=== PATIENT | female | born 1970 | race Caucasian/White ===

== ENCOUNTER → 2016-05-19 | Outpatient (CLI) | payer OTHER ==
[2016-01-14 17:55] VITALS: BP 110/54
[~2016-05-19] MED LIST: HYDR-2666 PO; INSU100I17 SQ; INSU300I SQ; LISI-338 PO; ONDA4TAB10 SL; POLY17PO5 PO; QUET25TA5 PO; SENN8.6T99 PO; TRAM50TA PO; novalog
--- NOTE | 2016-05-19 14:45 | RAD ---
DATE: 05/19/2016 EXAM: Bilateral diagnostic mammogram to include bilateral breast ultrasound 05/19/2017 HISTORY: History of bilateral breast nodules. History of calcifications seen within both breasts seen on previous screening mammogram. 6 month follow-up was recommended. COMPARISON: 10/15/2015 This study was interpreted with the benefit of Computerized Aided Detection (CAD). FINDINGS: Digital MLO and CC mammograms of both breasts were obtained. Comparison study is dated 10/15/2015. The breast parenchyma is heterogeneously dense which can obscure a lesion on mammography (breast density code C). Benign-appearing calcifications are seen scattered throughout both breasts. They are unchanged. No malignant appearing calcification or area of architectural distortion is noted. Since the previous examination there has been no significant interval change. The patient has palpable nodules within both breasts. Ultrasound of the upper outer quadrants of both breasts was performed. Multiple images were obtained. Within the upper outer quadrant of the right breast at the 10:00 position 3 oval-shaped anechoic structures are seen consistent with simple cysts these measure 4 mm 1 cm in size no solid mass is seen. These cysts correspond to the patient's palpable abnormality. Normal appearing dense glandular breast tissue is seen within the upper outer quadrant left breast. No solid or cystic mass is seen. IMPRESSION: BI-RADS Category 2 benign findings. There is no mammographic evidence of malignancy. Routine yearly screening mammography is recommended for follow-up. BI-RADS CATEGORY: 2 BENIGN FINDING(S) RECOMMENDED FOLLOW-UP: 12M 12 MONTH FOLLOW-UP PQRS compliance statement: Patient information was entered into a reminder system with a target due date 10/14/2016 for the next mammogram. Mammography is a sensitive method for finding small breast cancers, but it does not detect them all and is not a substitute for careful clinical examination. A negative mammogram does not negate a clinically suspicious finding and should not result in delay in biopsying a clinically suspicious abnormality. "Our facility is accredited by the [employer] Mammography Program."
== END | disposition home or self-care (01) ==
LOC: MAMMO 12:06
PROVIDERS: ATTEND Family Medicine
DX: R92.8 Other abnormal and inconclusive findings on diagnostic imaging of breast (principal); N63 Unspecified lump in breast
CPT/HCPCS: 76641; G0204; 77066

== ENCOUNTER 2016-07-25 11:38 | Emergency (ER) | payer SELFPAY ==
[~2016-07-25] VITALS: Ht 152.4 cm; Wt 59.4 kg
[~2016-07-25 11:38] MED LIST changes: +POLY17PO29 PO; -POLY17PO5 PO
[2016-07-25 12:14] LABS: BASO % 0 % (0-3); EOS % 2 % (0-3); HEMATOCRIT 41.7 % (36.0-47.0); HEMOGLOBIN 14.7 g/dL (12.0-15.5); LYMPH # 4.1 x10^3/uL (1.0-4.8); LYMPH % 39 % (24-48); MEAN CORPUSCULAR HEMOGLOBIN 32 pg (25-35); MEAN CORPUSCULAR HGB CONC 35 g/dL (31-37); MEAN CORPUSCULAR VOLUME 91 fL (79-100); MONO % 5 % (0-9); NEUT % 54 % (31-73); PLATELET COUNT 235 x10^3/uL (140-400); RED BLOOD COUNT 4.61 x10^6/uL (3.50-5.40); RED CELL DISTRIBUTION WIDTH 12.7 % (11.5-14.5); WHITE BLOOD COUNT 10.5 x10^3/uL (4.0-11.0)
[2016-07-25 12:22] LABS: CALCIUM 8.8 mg/dL (8.5-10.1); CREATININE 0.6 mg/dL (0.6-1.0); GFR 107.6; POTASSIUM 3.4 mmol/L (3.5-5.1)
[2016-07-25 12:24] LABS: PROTHROMBIN TIME PATIENT 12.9 SEC (11.7-14.0)
[2016-07-25 12:27] LABS: ALBUMIN 3.9 g/dL (3.4-5.0); ALBUMIN/GLOBULIN RATIO 1.2 (1.0-1.7); TOTAL PROTEIN 7.2 g/dL (6.4-8.2)
[2016-07-25 12:45] LABS: TOTAL BILIRUBIN 0.6 mg/dL (0.2-1.0)
[2016-07-25 13:07] LABS: BILIRUBIN,URINE NEGATIVE (NEG); GLUCOSE,URINE >=1000 mg/dL (NEG); NITRITE,URINE NEGATIVE (NEG); PROTEIN,URINE NEGATIVE (NEG-TRACE); UROBILINOGEN,URINE 0.2 mg/dL (0.2 mg/dL)
[2016-07-25 13:22] LABS: BACTERIA,URINE FEW /HPF (0-FEW); RBC,URINE OCC /HPF (0-2); SQUAMOUS EPITHELIAL CELL,UR FEW /LPF; WBC,URINE RARE /HPF (0-4)
[2016-07-25 14:00] VITALS: BP 123/71
--- NOTE | 2016-07-25 14:11 | PHYS DOC ---
Past Medical History Past Medical History: Bipolar, Diabetes-Type II, Pancreatitis, Other Additional Past Medical Histor: ADHD, GASTROPARESIS Past Surgical History: Cholecystectomy, Hysterectomy, Tonsillectomy, Tubal ligation Alcohol Use: None Drug Use: None Adult General Chief Complaint Chief Complaint: ABDOMINAL PAIN HPI HPI Patient is a 45 year old female who left work today and presented to the ED complaining of abdominal pain. The patient states she had abdominal pain like this once before when she was diagnosed with pancreatitis. She's had some nausea but no vomiting. It started yesterday, bothered her all night long, she went to work for about 3 hours this morning but she ended up leaving to come to the ED to get checked out. Patient states that so far today she has had Pedialyte to drink and she ate a "oatmeal cream high". That stayed down. She has a history of gastroparesis, takes erythromycin every morning for that. She had one episode of pancreatitis in the past. They ended up attributing it to triglycerides. She told me that she does not drink alcohol and has had her gallbladder out. She's not on any medication for triglycerides. Patient states she had several bowel movements yesterday, would not really characterize it as diarrhea, does not believe she had blood in it. She attributes this to the fact that she started a "ten-day cleanse" 2 days ago and drank a fiber drink that day. She was supposed to drink the fiber drink every day but she only drank one time because the next day she did have several bowel movements and thought maybe that was the reason. PCP Dr. Weathers Review of Systems Review of Systems Constitutional: Denies fever or chills [] Respiratory: Denies cough or shortness of breath [] GI: As in history of present illness : Denies dysuria or hematuria [] Allergies Allergies Allergies Coded Allergies Type Severity Reaction Last Updated Verified Penicillins Allergy Intermediate 03/22/15 No amoxicillin Allergy Intermediate 03/22/15 No cephalexin Allergy Intermediate 03/22/15 No diclofenac Allergy Intermediate nausea 01/14/16 Yes morphine Allergy Intermediate 03/22/15 No Physical Exam Physical Exam Constitutional: Well developed, well nourished, no acute distress, non-toxic appearance. Alert, talkative, mentating normally, no acute distress. HENT: Normocephalic, atraumatic, bilateral external ears normal, nose normal. [ ] Eyes: conjunctiva normal, no discharge. [] Neck: Normal range of motion, no stridor. [] Cardiovascular:Heart rate regular rhythm, no murmur [] Lungs & Thorax: Bilateral breath sounds clear to auscultation [] Abdomen: Bowel sounds normal, soft, no masses, no pulsatile masses. Mild tenderness across the upper abdomen to palpation, abdomen overall is very benign , no rebound or guarding Skin: Warm, dry, no erythema, no rash. [] Extremities: No tenderness, no cyanosis, no clubbing, ROM intact, no edema. [] Neurologic: Alert and oriented X 3, normal motor function, normal sensory function, no focal deficits noted. [] Current Patient Data Vital Signs Vital Signs Date Time Temp Pulse Resp B/P (MAP) Pulse Ox O2 Delivery O2 Flow Rate FiO2 07/25/16 14:00 76 14 123/71 (88) 98 07/25/16 11:40 98.3 Room Air 98.3 Lab Values Laboratory Tests Test 07/25/16 11:50 07/25/16 12:40 White Blood Count 10.5 x10^3/uL (4.0-11.0) Red Blood Count 4.61 x10^6/uL (3.50-5.40) Hemoglobin 14.7 g/dL (12.0-15.5) Hematocrit 41.7 % (36.0-47.0) Mean Corpuscular Volume 91 fL (79-100) Mean Corpuscular Hemoglobin 32 pg (25-35) Mean Corpuscular Hemoglobin Concent 35 g/dL (31-37) Red Cell Distribution Width 12.7 % (11.5-14.5) Platelet Count 235 x10^3/uL (140-400) Neutrophils (%) (Auto) 54 % (31-73) Lymphocytes (%) (Auto) 39 % (24-48) Monocytes (%) (Auto) 5 % (0-9) Eosinophils (%) (Auto) 2 % (0-3) Basophils (%) (Auto) 0 % (0-3) Neutrophils # (Auto) 5.7 x10^3uL (1.8-7.7) Lymphocytes # (Auto) 4.1 x10^3/uL (1.0-4.8) Monocytes # (Auto) 0.5 x10^3/uL (0.0-1.1) Eosinophils # (Auto) 0.2 x10^3/uL (0.0-0.7) Basophils # (Auto) 0.0 x10^3/uL (0.0-0.2) Prothrombin Time 12.9 SEC (11.7-14.0) Prothrombin Time INR 1.0 (0.8-1.1) PTT 29 SEC (24-38) Sodium Level 139 mmol/L (136-145) Potassium Level 3.4 mmol/L (3.5-5.1) L Chloride Level 101 mmol/L (98-107) Carbon Dioxide Level 26 mmol/L (21-32) Anion Gap 12 (6-14) Blood Urea Nitrogen 7 mg/dL (7-20) Creatinine 0.6 mg/dL (0.6-1.0) Estimated GFR (Cockcroft-Gault) 107.6 BUN/Creatinine Ratio 12 (6-20) Glucose Level 249 mg/dL (70-99) H Calcium Level 8.8 mg/dL (8.5-10.1) Total Bilirubin 0.6 mg/dL (0.2-1.0) Aspartate Amino Transferase (AST) 13 U/L (15-37) L Alanine Aminotransferase (ALT) 21 U/L (14-59) Alkaline Phosphatase 67 U/L (46-116) Total Protein 7.2 g/dL (6.4-8.2) Albumin 3.9 g/dL (3.4-5.0) Albumin/Globulin Ratio 1.2 (1.0-1.7) Lipase 158 U/L (73-393) Urine Collection Type Unknown Urine Color Yellow Urine Clarity Clear Urine pH 6.0 Urine Specific K[place]iller 1.010 Urine Protein Negative mg/dL (NEG-TRACE) Urine Glucose (UA) >=1000 mg/dL (NEG) Urine Ketones (Stick) Negative mg/dL (NEG) Urine Blood Negative (NEG) Urine Nitrite Negative (NEG) Urine Bilirubin Negative (NEG) Urine Urobilinogen Dipstick 0.2 mg/dL (0.2 mg/dL) Urine Leukocyte Esterase Negative (NEG) Urine RBC Occ /HPF (0-2) Urine WBC Rare /HPF (0-4) Urine Squamous Epithelial Cells Few /LPF Urine Bacteria Few /HPF (0-FEW) Laboratory Tests 07/25/16 11:50 Laboratory Tests 07/25/16 11:50 EKG EKG [] Radiology/Procedures Radiology/Procedures [] Course & Med Decision Making Course & Med Decision Making Pertinent Labs and Imaging studies reviewed. (See chart for details) 45 year old female with a history of one episode of pancreatitis in the past presents with some abdominal pain since yesterday that she thinks might be pancreatitis. No real accompanying symptoms and her abdomen exam is benign. I advised the patient we will check some labs and she is agreeable to that. Labs are unremarkable, lipase is not elevated. I discussed with the patient that she does not appear to have pancreatitis again. See discharge instructions for my recommendations to the patient. She is stable for discharge. [] Dragon Disclaimer Dragon Disclaimer This electronic medical record was generated, in whole or in part, using a voice recognition dictation system. Departure Departure Impression: Primary Impression: Abdominal pain Disposition: HOME, SELF-CARE Condition: STABLE Referrals: NORMA WEATHERS MD (PCP) Patient Instructions: Abdominal Pain, Child Additional Instructions: Home to rest, rest your stomach for the next 1-2 days with small amounts of clear liquids, nothing spicy or greasy, no dairy, small amounts of food or drink at a time only. Take an uvyi-tro-rfojgjv acid reducing medicine such as Pepcid or Nexium for about a week. If problems are not getting better in 2-3 days, or if getting worse, return or see your doctor. JAMESON ZAMORANO MD July 25, 2016 14:11
== END 2016-07-25 14:05 | disposition home or self-care (01) ==
LOC: ER 12:33
DX: R10.10 Upper abdominal pain, unspecified (principal); R11.0 Nausea; F31.9 Bipolar disorder, unspecified; E11.43 Type 2 diabetes mellitus with diabetic autonomic (poly)neuropathy; K31.84 Gastroparesis; F90.9 Attention-deficit hyperactivity disorder, unspecified type; Z90.49 Acquired absence of other specified parts of digestive tract; Z90.710 Acquired absence of both cervix and uterus; Z98.51 Tubal ligation status; Z88.5 Allergy status to narcotic agent; Z88.8 Allergy status to other drugs, medicaments and biological substances; Z88.1 Allergy status to other antibiotic agents; Z88.0 Allergy status to penicillin
CPT/HCPCS: 36415; 80053; 81001; 83690; 85027; 85610; 85730; 99284

== ENCOUNTER 2017-03-17 11:32 | Emergency (ER) | payer SELFPAY, OTHER ==
[2017-03-17 12:13] LABS: URINE HCG POC HCG NEGATIVE (Negative)
[2017-03-17] MEDS: IV NORMAL SALINE 1000ML BAG 1,000 ML IV (12:21)
[2017-03-17 12:29] LABS: ADD MAN DIFF? NO
[2017-03-17] MEDS: ONDANSETRON PF 4 MG/2 ML VIAL. IV (12:30)
[2017-03-17] MEDS: FAMOTIDINE 20 MG/2 ML VIAL IVP (12:30)
[2017-03-17 12:32] LABS: BASO % 0 % (0-3); EOS # 0.1 x10^3/uL (0.0-0.7); EOS % 1 % (0-3); HEMATOCRIT 45.8 % (36.0-47.0); HEMOGLOBIN 15.3 g/dL (12.0-15.5); LYMPH # 2.1 x10^3/uL (1.0-4.8); LYMPH % 17 % (24-48); MEAN CORPUSCULAR HEMOGLOBIN 31 pg (25-35); MEAN CORPUSCULAR HGB CONC 33 g/dL (31-37); MEAN CORPUSCULAR VOLUME 93 fL (79-100); MONO # 0.5 x10^3/uL (0.0-1.1); MONO % 4 % (0-9); NEUT # 9.8 x10^3uL (1.8-7.7); NEUT % 79 % (31-73); PLATELET COUNT 295 x10^3/uL (140-400); RED BLOOD COUNT 4.92 x10^6/uL (3.50-5.40); RED CELL DISTRIBUTION WIDTH 12.7 % (11.5-14.5); WHITE BLOOD COUNT 12.5 x10^3/uL (4.0-11.0)
[2017-03-17 12:39] LABS: BILIRUBIN,URINE NEGATIVE (NEG); CLARITY,URINE CLEAR; COLOR,URINE YELLOW; GLUCOSE,URINE >=1000 mg/dL (NEG); NITRITE,URINE NEGATIVE (NEG); PH,URINE 5.5; PROTEIN,URINE NEGATIVE (NEG-TRACE); UROBILINOGEN,URINE 0.2 mg/dL (0.2 mg/dL)
[2017-03-17 12:44] LABS: ANION GAP 12 (6-14); BLOOD UREA NITROGEN 11 mg/dL (7-20); BUN/CREATININE RATIO 14 (6-20); CALCIUM 8.7 mg/dL (8.5-10.1); CARBON DIOXIDE 25 mmol/L (21-32); CHLORIDE 100 mmol/L (98-107); CREATININE 0.8 mg/dL (0.6-1.0); GFR 76.9; GLUCOSE 363 mg/dL (70-99); POTASSIUM 3.9 mmol/L (3.5-5.1); SODIUM 137 mmol/L (136-145)
[2017-03-17 12:48] LABS: BACTERIA,URINE MODERATE /HPF (0-FEW); RBC,URINE TNTC /HPF (0-2); SQUAMOUS EPITHELIAL CELL,UR MOD /LPF; WBC,URINE 0 /HPF (0-4)
[2017-03-17 12:50] LABS: ALBUMIN 4.2 g/dL (3.4-5.0); ALBUMIN/GLOBULIN RATIO 1.4 (1.0-1.7); ALK PHOS 78 U/L (46-116); ALT (SGPT) 18 U/L (14-59); AST (SGOT) 14 U/L (15-37); LIPASE 100 U/L (73-393); TOTAL BILIRUBIN 0.4 mg/dL (0.2-1.0); TOTAL PROTEIN 7.3 g/dL (6.4-8.2)
== END 2017-03-17 15:22 | disposition home or self-care (01) ==
LOC: ER 11:32
DX: N20.1 Calculus of ureter (principal); F31.9 Bipolar disorder, unspecified; E11.43 Type 2 diabetes mellitus with diabetic autonomic (poly)neuropathy; K31.84 Gastroparesis; F90.9 Attention-deficit hyperactivity disorder, unspecified type; E11.9 Type 2 diabetes mellitus without complications; Z90.49 Acquired absence of other specified parts of digestive tract; Z90.710 Acquired absence of both cervix and uterus; Z98.51 Tubal ligation status; Z88.0 Allergy status to penicillin; Z88.1 Allergy status to other antibiotic agents; Z88.5 Allergy status to narcotic agent; Z88.8 Allergy status to other drugs, medicaments and biological substances
CPT/HCPCS: 36415; 74176; 80053; 81001; 81025; 83690; 85025; 87086; 96361; 96374; 96375; 99285-25; J2405; J7030; S0028

== ENCOUNTER → 2017-06-07 | Outpatient (CLI) | payer OTHER | END | disposition home or self-care (01) | LOC: MAMMO 09:45 | DX: N63.20 Unspecified lump in the left breast, unspecified quadrant (principal); N64.4 Mastodynia | CPT/HCPCS: 76641; 77066; G0279 ==

== ENCOUNTER → 2017-07-02 | Outpatient (CLI) | payer OTHER ==
[2017-07-02] MEDS: LIDOCAINE 2%/EPI 1:100,000 20 ML VIAL. IJ (07:30)
[2017-07-02] MEDS: LIDOCAINE WITH 8.4% SOD BICARB 3 ML DISP.SYRIN. INJ (07:30)
== END | disposition home or self-care (01) ==
LOC: MAMMO 07:19
DX: R92.0 Mammographic microcalcification found on diagnostic imaging of breast (principal)
CPT/HCPCS: 19081; 19085; 77022; 77065; 88305; C1713; J3490

== ENCOUNTER 2017-07-03 19:49 | Emergency (ER) | payer SELFPAY, OTHER | END 2017-07-03 20:25 | disposition home or self-care (01) | LOC: ER 19:49 | DX: N61.0 Mastitis without abscess (principal); E11.9 Type 2 diabetes mellitus without complications; F31.9 Bipolar disorder, unspecified; F90.9 Attention-deficit hyperactivity disorder, unspecified type; Z88.6 Allergy status to analgesic agent; Z88.1 Allergy status to other antibiotic agents; Z88.5 Allergy status to narcotic agent; Z88.0 Allergy status to penicillin; Z98.51 Tubal ligation status; Z90.710 Acquired absence of both cervix and uterus; Z90.49 Acquired absence of other specified parts of digestive tract | CPT/HCPCS: 99283 ==

== ENCOUNTER → 2017-12-22 | Outpatient (CLI) | payer OTHER ==
[2017-07-03 19:50] VITALS: BP 152/72
[~2017-12-22] MED LIST changes: -HYDR-2666 PO; +HYDR-2758 PO; +SULF1TAB24 PO; +TAMS0.4C97 PO
--- NOTE | 2017-12-22 10:54 | RAD ---
DATE: 12/22/2017 EXAM: DIGITAL DIAGNOSTIC RT, BREAST LEFT HISTORY: 6 month follow-up after biopsy COMPARISON: 07/02/2017 , 06/07/2017 This study was interpreted with the benefit of Computerized Aided Detection (CAD). Breast Density: HETERO The breast parenchyma is heterogenously dense, which could reduce sensitivity of mammography. Breast parenchyma level C. FINDINGS: A breast biopsy marker is present medially in the right breast. No new or enlarging breast densities are seen. Several benign type calcifications are present. No suspicious microcalcifications have developed. IMPRESSION: Stable right mammograms without evidence of malignancy. Left breast ultrasound, 12/22/2017: A targeted ultrasound exam of the left breast was performed at the 1:00 location or a small hypoechoic lesion was identified on the 06/07/2017 exam. The small structure appears to have decreased slightly in size, currently measuring approximate 5 x 2 x 3 mm. Its margins are slightly lobulated. It is hypoechoic with only faint internal echoes. This is probably a complicated cyst. IMPRESSION: 1. Persistent small left breast lesion which is probably a complicated cyst.. 2. Follow-up left breast ultrasound and bilateral mammography in 6 months is suggested. BI-RADS CATEGORY: 3 PROBABLY BENIGN FINDING(S)-SHORT INTERVAL FOLLOW-UP SUGGESTED RECOMMENDED FOLLOW-UP: 6M 6 MONTH FOLLOW-UP PQRS compliance statement: Patient information was entered into a reminder system with a target due date for the next mammogram. Mammography is a sensitive method for finding small breast cancers, but it does not detect them all and is not a substitute for careful clinical examination. A negative mammogram does not negate a clinically suspicious finding and should not result in delay in biopsying a clinically suspicious abnormality. "Our facility is accredited by the [employer] Mammography Program."
== END | disposition home or self-care (01) ==
LOC: MAMMO 09:41
PROVIDERS: ATTEND Surgery
DX: N63.21 Unspecified lump in the left breast, upper outer quadrant (principal)
CPT/HCPCS: 76641; 77065

== ENCOUNTER 2018-01-11 06:29 | Day surgery (SDC) | payer OTHER ==
--- NOTE | 2018-01-10 10:57 | PDOC1 ---
History and Physical Date of Admission Date of Admission DATE: 01/11/18 Identification/Chief Complaint Chief Complaint left shoulder pain Source Source: Chart review History of Present Illness History of Present Illness The patient is a 47 y/o female with left shoulder pain. MRI from [facility] on 12.21.2017 shows intact rotator cuff and no full- thickness tear. Mild to moderate rotator cuff tendinopathy predominantly of the supraspinatus tendon. Moderate arthrosis of acromioclavicular joint, impingement upon the supraspinatus myotendinous junction. Subacromial bursal fluid likely inflammatory. She states the pain has not improved since her last visit. The pain will radiate down her to her hand. The pain interferes with her daily activities such as dressing and shaving. 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 Past Medical History Cardiovascular: HTN Endocrine: Diabetes Past Surgical History Past Surgical History: Cholecystectomy, Tonsillectomy, Hysterectomy, Other ( right shoulder - 2009) Family History Family History: Diabetes, Hypertension Social History Smoke: <1 pack per day (1/2 ppd) ALCOHOL: none Drugs: None Current Medications Current Medications Active Scripts Active Reported Tradjenta (Linagliptin) 5 Mg Tablet 5 Mg PO DAILY08 Tresiba Flextouch U-100 (Insulin Degludec) 100 Unit/1 Ml Insuln.pen 30 Unit SQ HS Amitriptyline Hcl 10 Mg Tablet 12.5 Mg PO HS Hydrocodone-Apap 7.5-325 (Hydrocodone Bit/Acetaminophen) 1 Each Tablet 1 Tab PO PRN Q6HRS PRN Lisinopril 5 Mg Tablet 10 Mg PO DAILY Novolog Flexpen (Insulin Aspart) 100 Unit/1 Ml Insuln.pen 1 Unit SQ p Allergies Allergies: Coded Allergies: Penicillins (Unverified Allergy, Intermediate, 03/22/15) amoxicillin (Unverified Allergy, Intermediate, 03/22/15) cephalexin (Unverified Allergy, Intermediate, 03/22/15) diclofenac (Verified Allergy, Intermediate, nausea, 01/14/16) morphine (Unverified Allergy, Intermediate, 03/22/15) tramadol (Verified Adverse Reaction, Severe, 01/06/18) PANCREATITIS Sulfa (Sulfonamide Antibiotics) (Verified Adverse Reaction, Intermediate, Nausea and Vomiting, 01/06/18) Physical Exam General: Alert, Oriented X3, Cooperative, No acute distress HEENT: Atraumatic, EOMI Lungs: Normal air movement Heart: RRR Abdomen: Soft Extremities: No clubbing, No cyanosis, Normal pulses Skin: No rashes, No breakdown, No significant lesion Neuro: Normal speech, Sensation intact Psych/Mental Status: Mental status NL, Mood NL VTE Prophylaxis Ordered VTE Prophylaxis Devices: Yes VTE Pharmacological Prophylaxi: Yes Assessment/Plan Assessment/Plan Tendinopathy of left rotator cuff. The patient and Dr. Fernandez discussed the risks and benefits, as well as the expected protocol after an arthroscopic shoulder surgery. She would be an arm sling for less than three weeks, and have a gradual progression with a goal of full range of motion and released to full activities at three months. There are some risks such as risk of continued pain, need for cuff repair, retear ofa cuff repair, neurovascular injury, stiffness, infection, but overall the risks and complications is relatively low. There will be a general anesthetic, which has its own risks. We discussed the option of living with the tear, with likely continued symptoms, and could continue nonoperative treatment with strengthening and therapy. The patient stated understanding of the risks, benefits and alternatives and desires to proceed. We can schedule the surgery at a mutually convenient date. She will follow up with me 10-14 days after surgery. BORIS GRAY Jan 10, 2018 10:57
[~2018-01-11] VITALS: Ht 152.4 cm; Wt 62.6 kg
[~2018-01-11 06:29] MED LIST changes: +AMIT10TA PO; +BUPIVACAINE-EPI 0.5%-1:200000 50 ML VIAL. ONE; +HYDR-2762 PO; +INSU100I30 SQ; +LINA5TAB4 PO
[2018-01-11] MEDS ORDERED: PROCHLORPERAZINE 10 MG/2 ML VIAL. IV PRN (07:00)
[2018-01-11] MEDS ORDERED: ONDANSETRON PF 4 MG/2 ML VIAL. IV PRN (07:00)
[2018-01-11] MEDS ORDERED: fentaNYL PF VIAL 100 MCG/2 ML VIAL IV PRN ×2 (07:00)
[2018-01-11] MEDS ORDERED: LIDOCAINE 1% PF 2 ML VIAL. ID PRN (07:00)
[2018-01-11] MEDS: IV RINGERS,LACTATED 1000ML 1,000 ML IV SCH ×2 (07:14→11:27)
[2018-01-11 07:18] LABS: CALCIUM 8.8 mg/dL (8.5-10.1); CREATININE 0.6 mg/dL (0.6-1.0); GFR 106.7; POTASSIUM 3.7 mmol/L (3.5-5.1)
[2018-01-11] MEDS ORDERED: INSULIN LISPRO 100 UNIT/ML 3ML VIAL. SQ ONE (07:45)
[2018-01-11] MEDS ORDERED: CLINDAMYCIN 900MG PREMIX 50 ML IV PRN (08:00)
[2018-01-11] MEDS ORDERED: PROPOFOL 20 ML IV ONE (08:49)
[2018-01-11] MEDS ORDERED: SUCCINYLCHOLINE 200 MG/10 ML VIAL. ONE (08:49)
[2018-01-11] MEDS ORDERED: ROCURONIUM 50 MG/5 ML VIAL. ONE (08:49)
[2018-01-11] MEDS ORDERED: LIDOCAINE 2% PF Vial for OR 5 ML VIAL. ONE (08:49)
[2018-01-11] MEDS ORDERED: fentaNYL PF VIAL 100 MCG/2 ML VIAL ONE (08:49)
[2018-01-11] MEDS ORDERED: GLYCOPYRROLATE 1 MG/5 ML VIAL. ONE (10:02)
[2018-01-11] MEDS ORDERED: NEOSTIGMINE METHYLSULFATE 5 MG/5 ML SYRINGE. ONE (10:02)
[2018-01-11] MEDS ORDERED: ONDANSETRON PF 4 MG/2 ML VIAL. ONE (10:02)
[2018-01-11] MEDS ORDERED: DESFLURANE 31 TO 60 MINUTES IH ONE (10:02)
[2018-01-11] MEDS ORDERED: DEXAMETHASONE SOD PHOS 20 MG/5 ML VIAL. ONE (10:02)
[2018-01-11] MEDS ORDERED: PHENYLEPHRINE in 0.9% NACL PF 1 MG/10 ML SYRINGE. IV ONE (10:22)
--- NOTE | 2018-01-11 11:10 | PDOC4 ---
Operative Note Operative Note Date of Procedure: January 11, 2018 Pre-Op Diagnosis: Left shoulder impingement syndrome. Left shoulder rotator cuff tendinitis. Post-Op Diagnosis: Same Procedure: Arthroscopy, shoulder, surgical decompression of subacromial space, with partial acromioplasty, and coracoacromial ligament release. CPT 63446 arthroscopy shoulder debridement limited, CPT 31968 Surgeon: Sam Fernandez MD Final Finisher: Whitley Stewart PA-C Anesthesia: General EBL: 10 mL Specimens Obtained: none Complications: none Drains: none Findings: Rotator cuff tendinitis to a depth of 2 mm. Impingement syndrome. Normal glenohumeral joint and biceps tendon, except for mild joint inflammation. Indications for Procedure: The patient is a 47-year-old woman with left shoulder pain, rotator cuff tendinitis by MRI, and impingement syndrome clinically. We tried nonoperative treatment without success. She and I discussed the risks benefits and alternatives of arthroscopy with acromioplasty and decompression, and rotator cuff debridement, with a possible cuff repair if there is a rotator cuff tear. We discussed potential risks of surgery such as stiffness, continued pain, infection, neurovascular injury, or other potential surgical or anesthetic complications. All of her questions about surgery were answered and she desired to proceed. A written consent was obtained. Procedure in Detail: The patient was identified in the preoperative holding area. The correct extremity was marked by me. The patient was taken to the operating room where general anesthesia was used. The patient was positioned in the beachchair position with the bony prominences well-padded and the eyes protected. Preoperative antibiotics were given intravenously. A timeout procedure was performed. Under sterile technique 20 mLs of 0.5% Marcaine with epinephrine was injected into the subacromial space and glenohumeral joint. The limb was then thoroughly prepared with surgical ChloraPrep solution circumferentially. Sterile waterproof arthroscopy shoulder drapes were applied, along with an impervious stockinette over the arm, and a spider arm stewart. Posterior, posterolateral, lateral, and anterior arthroscopy portals were used. The glenoid humeral joint showed the normal bare area, and perhaps slight chondromalacia and softening of the glenoid cartilage, but no advanced arthritis , and a sickly and normal joint. There is a little bit of joint inflammation and vascular injection of the edges of the labrum and capsule, as if there is a mild inflammatory component here. The biceps tendon was intact to probing. The rotator cuff was pristine from the articular view. The subscapularis tendon is normal except for slight vascular injection. The subacromial space was entered. There was extensive bursitis. There is a very prominent acromion, and obvious wear pattern on the coracoacromial ligament and anterior acromion. There is about 2 mm of rotator cuff tendinitis in a diffuse pattern over a large area of the supraspinatus. Rotator cuff debridement was performed with the motorized shaver. There is no free edge or full-thickness tear. This completes CPT 99168, arthroscopic shoulder limited debridement. The undersurface periosteum of the acromion was removed with the ArthroCare device, and the coracoacromial ligament was released where it was causing impingement. The shaver was used to remove excess bursa. The ArthroCare device was used for hemostasis. A 6.0 mm oval bur was used for the acromioplasty. A 3 stage acromioplasty was performed, with the bur first laterally, removing anterior acromion, using the distal clavicle as a reference. The bur was then placed in the posterior portal, and a cutting block technique was used for smoothing of the lateral edge of the acromion which was prominent, and tapering the anterior acromion into a Bigliani type I configuration. Final smoothing of the acromion was performed with the bur again in the lateral portal, and direct arthroscopic visualization. The previously very tight subacromial space was now nicely decompressed. This completes CPT 25852, subacromial decompression and acromioplasty. No further impingement appears to be occurring. Copious irrigation was used. The arthroscopic instruments were removed. Whitley Stewart PA-C, my assistant secretary, closed the portals with 3-0 Prolene interrupted sutures. She injected additional 30 mL of 0.5% Marcaine with epinephrine into the subacromial space. She applied a sterile dressing, and an arm sling. Needle and sponge counts were correct. There were no apparent competitions. SAM FERNANDEZ MD Jan 11, 2018 11:10
[2018-01-11] MEDS ORDERED: oxyCODONE/APAP 5/325 1 TAB TABLET PO ONE (12:00)
[2018-01-11] MEDS ORDERED: OXYC-323 PO (12:07)
[2018-01-11 12:29] VITALS: BP 116/72
[2018-01-11 19:16] LABS: HEMOGLOBIN A1C 8.9 % (4.8-5.6)
== END 2018-01-11 12:43 | disposition home or self-care (01) ==
LOC: SURG 06:29
PROVIDERS: ATTEND Orthopaedic Surgery
DX: M75.42 Impingement syndrome of left shoulder (principal); M75.82 Other shoulder lesions, left shoulder; M94.212 Chondromalacia, left shoulder; M75.52 Bursitis of left shoulder; M19.012 Primary osteoarthritis, left shoulder; I10 Essential (primary) hypertension; E11.9 Type 2 diabetes mellitus without complications; Z90.49 Acquired absence of other specified parts of digestive tract; Z90.710 Acquired absence of both cervix and uterus; Z98.890 Other specified postprocedural states; F17.210 Nicotine dependence, cigarettes, uncomplicated; Z88.0 Allergy status to penicillin; Z88.1 Allergy status to other antibiotic agents; Z88.2 Allergy status to sulfonamides; Z88.5 Allergy status to narcotic agent; Z88.8 Allergy status to other drugs, medicaments and biological substances; Z83.3 Family history of diabetes mellitus; Z82.49 Family history of ischemic heart disease and other diseases of the circulatory system; Z79.899 Other long term (current) drug therapy; Z79.84 Long term (current) use of oral hypoglycemic drugs
CPT/HCPCS: 29822; 29826; 36415; 80048; 82962; 83036; A7015; J0330; J0780; J1100; J2001; J2370; J2405; J2704; J2710; J3010; J3490; J7120

== ENCOUNTER → 2018-07-06 | Outpatient (CLI) | payer OTHER ==
[~2018-07-06] MED LIST changes: -BUPIVACAINE-EPI 0.5%-1:200000 50 ML VIAL. ONE; -HYDR-2758 PO; +HYDR-2761 PO; -HYDR-2762 PO; +HYDR-2765 PO; +LINA5TAB PO; -LINA5TAB4 PO; +OXYC1TAB15 PO
--- NOTE | 2018-07-06 13:09 | RAD ---
Examination: CT HEAD WO CONTRAST History: H/O MIGRAINE NO SURGERIES NO PREV Comparison/Correlation: None Findings: Axial images of the head were obtained without contrast. Pedicles are normal size. No intracranial hemorrhage, midline shift, or mass effect. Globes and optic nerves are unremarkable. Bilateral maxillary sinus mucous retention cysts noted. Partial opacification of the sphenoid sinuses noted sinus. Partial opacification of ethmoid air cells noted. Globes and optic nerves are intact. Bony structures are intact. Impression: No intracranial hemorrhage. Chronic paranasal sinusitis. PQRS Compliance Statement: One or more of the following individualized dose reduction techniques were utilized for this examination: 1. Automated exposure control 2. Adjustment of the mA and/or kV according to patient size 3. Use of iterative reconstruction technique Electronically signed by: Alfred Hinton MD (07/06/2018 1:06 PM) [facility]
== END | disposition home or self-care (01) ==
LOC: CT 11:15
PROVIDERS: ATTEND Family Medicine
DX: J32.8 Other chronic sinusitis (principal); J34.1 Cyst and mucocele of nose and nasal sinus; G43.909 Migraine, unspecified, not intractable, without status migrainosus; J34.89 Other specified disorders of nose and nasal sinuses; Z87.891 Personal history of nicotine dependence
CPT/HCPCS: 70450

== ENCOUNTER → 2018-07-06 | Outpatient (CLI) | payer OTHER ==
--- NOTE | 2018-07-06 16:49 | RAD ---
DATE: 07/06/2018 EXAM: DIGITAL DIAGNOSTIC BILATERAL, BREAST LEFT HISTORY: Routine screening COMPARISON: 06/07/2017 mammographic exam This study was interpreted with the benefit of Computerized Aided Detection (CAD). Breast Density: HETERO The breast parenchyma is heterogenously dense, which could reduce sensitivity of mammography. Breast parenchyma level C. FINDINGS: Benign calcifications is minimal. No new mass or distortion. Ultrasound imaging of the left breast was performed at the 1:00 region 3 cm from the nipple. The hypoechoic structure present at this site measures 0.4 cm x 0.4 cm x 0.2 cm. This is not significantly changed compared to prior exam. IMPRESSION: Follow-up in one year to assess the left breast hypoechoic structure by ultrasound recommended. BI-RADS CATEGORY: 3 PROBABLY BENIGN FINDING(S)-SHORT INTERVAL FOLLOW-UP SUGGESTED RECOMMENDED FOLLOW-UP: 12M 12 MONTH FOLLOW-UP PQRS compliance statement: Patient information was entered into a reminder system with a target due date in one year for the next mammogram. Mammography is a sensitive method for finding small breast cancers, but it does not detect them all and is not a substitute for careful clinical examination. A negative mammogram does not negate a clinically suspicious finding and should not result in delay in biopsying a clinically suspicious abnormality. "Our facility is accredited by the [employer] Mammography Program."
== END | disposition home or self-care (01) ==
LOC: MAMMO 09:13
PROVIDERS: ATTEND Surgery
DX: R92.1 Mammographic calcification found on diagnostic imaging of breast (principal)
CPT/HCPCS: 76641; 77066

== ENCOUNTER 2018-10-17 09:53 | Emergency (ER) | payer OTHER ==
[~2018-10-17] VITALS: Ht 152.4 cm; Wt 59.4 kg
[2018-10-17] MEDS ORDERED: LIDO:MAALOX 1:1 20 ML SINGLE DOSE. SWSW ONE (10:15)
--- NOTE | 2018-10-17 10:16 | EKG ---
[facility] [address] [place] [address] Test Date: 2018-10-17 Test Time: 10:00:52 Pat Name: HUBER BOWLING Department: Room: Gender: F Library Associate: : 1970 Requested By: LEONARD RESENDIZ Order Number: [id number] Reading MD: Measurements Intervals Foster Rate: 107 P: 38 OR: 132 QRS: 48 QRSD: 82 T: 28 QT: 354 QTc: 478 Interpretive Statements SINUS TACHYCARDIA LOW LIMB LEAD VOLTAGE BORDERLINE ECG No previous ECG available for comparison
--- NOTE | 2018-10-17 10:32 | RAD ---
EXAM: Chest, single view. HISTORY: Chest pain. COMPARISON: None. FINDINGS: A frontal view of the chest is obtained. There is no infiltrate, pleural effusion or pneumothorax. The heart is normal in size. IMPRESSION: No acute pulmonary finding. Electronically signed by: Sofia Ernst MD (10/17/2018 10:29 AM) [place] [id number]
[2018-10-17 10:38] LABS: BASO # 0.1 x10^3/uL (0.0-0.2); BASO % 1 % (0-3); EOS # 1.2 x10^3/uL (0.0-0.7); EOS % 11 % (0-3); HEMATOCRIT 46.2 % (36.0-47.0); LYMPH # 3.7 x10^3/uL (1.0-4.8); LYMPH % 35 % (24-48); MEAN CORPUSCULAR HEMOGLOBIN 31 pg (25-35); MEAN CORPUSCULAR HGB CONC 35 g/dL (31-37); MEAN CORPUSCULAR VOLUME 90 fL (79-100); MONO # 0.5 x10^3/uL (0.0-1.1); MONO % 5 % (0-9); NEUT # 5.2 x10^3/uL (1.8-7.7); NEUT % 49 % (31-73); PLATELET COUNT 251 x10^3/uL (140-400); RED BLOOD COUNT 5.13 x10^6/uL (3.50-5.40); RED CELL DISTRIBUTION WIDTH 13.7 % (11.5-14.5); WHITE BLOOD COUNT 10.7 x10^3/uL (4.0-11.0)
[2018-10-17 10:53] LABS: CALCIUM 8.7 mg/dL (8.5-10.1); CREATININE 0.5 mg/dL (0.6-1.0); GFR 131.7; POTASSIUM 3.1 mmol/L (3.5-5.1)
[2018-10-17 10:55] LABS: ALBUMIN 3.5 g/dL (3.4-5.0); ALBUMIN/GLOBULIN RATIO 1.1 (1.0-1.7); TOTAL BILIRUBIN 0.2 mg/dL (0.2-1.0); TOTAL PROTEIN 6.7 g/dL (6.4-8.2)
[2018-10-17 11:02] VITALS: BP 128/69
[2018-10-17 11:14] LABS: BILIRUBIN,URINE NEGATIVE (NEG); CLARITY,URINE CLEAR; COLOR,URINE YELLOW; NITRITE,URINE NEGATIVE (NEG); PH,URINE 6.5; PROTEIN,URINE NEGATIVE (NEG-TRACE); UROBILINOGEN,URINE 0.2 mg/dL (0.2 mg/dL)
[2018-10-17] MEDS ORDERED: RANI300T3 PO (11:18)
--- NOTE | 2018-10-17 11:18 | PHYS DOC ---
Past Medical History Past Medical History: Bipolar, Diabetes-Type II, Pancreatitis, Other Additional Past Medical Histor: ADHD, GASTROPARESIS Past Surgical History: Cholecystectomy, Hysterectomy, Tonsillectomy, Tubal ligation Additional Past Surgical Histo: breast bx; L shoulder Alcohol Use: None Drug Use: None Adult General Chief Complaint Chief Complaint: MULTIPLE COMPLAINTS HPI HPI Patient is a 47-year-old otherwise healthy female with a history of hypertension who presents with a litany of complaints this morning. First over the last 24 hours she's had some burning epigastric pain that goes up into her chest. She states she feels nauseous with this. She has not taken anything at home to help her symptoms. However, she states it does get better when she sits upright. She also states she's had some full body tingling episodes that seem to come and go. She denies being particularly anxious about anything other than her blood pressure. She states her blood pressure was 150/81 and she checked it a few minutes ago and it was going up it was 150/83. She denies any dyspnea on exertion. She does state that it is difficult to get a deep breath at times.[] Review of Systems Review of Systems Constitutional: Denies fever or chills [] Eyes: Denies change in visual acuity, redness, or eye pain [] HENT: Denies nasal congestion or sore throat [] Respiratory: Denies cough or shortness of breath [] Cardiovascular: No additional information not addressed in HPI [] GI: Per history of present illness[] : Denies dysuria or hematuria [] Musculoskeletal: Denies back pain or joint pain [] Integument: Denies rash or skin lesions [] Neurologic: Denies headache, focal weakness or sensory changes [] Endocrine: Denies polyuria or polydipsia [] All other systems were reviewed and found to be within normal limits, except as documented in this note. Current Medications Current Medications Current Medications Medications (Trade) Dose Ordered Sig/Neha Start Time Stop Time Status Last Admin Dose Admin Multi-Ingredient Mouthwash/Gargle (Gi Cocktail) 20 ml 1X ONCE 10/17/18 10:15 10/17/18 10:16 DC 10/17/18 10:27 20 ML Allergies Allergies Allergies Coded Allergies Type Severity Reaction Last Updated Verified Penicillins Allergy Intermediate 03/22/15 No amoxicillin Allergy Intermediate 03/22/15 No cephalexin Allergy Intermediate 03/22/15 No diclofenac Allergy Intermediate nausea 01/14/16 Yes morphine Allergy Intermediate 03/22/15 No tramadol Adverse Reaction Severe 01/06/18 Yes Sulfa (Sulfonamide Antibiotics) Adverse Reaction Intermediate Nausea and Vomiting 01/06/18 Yes Physical Exam Physical Exam Constitutional: Well developed, well nourished, no acute distress, non-toxic appearance. [] HENT: Normocephalic, atraumatic, bilateral external ears normal, oropharynx moist, no oral exudates, nose normal. [] Eyes: PERRLA, EOMI, conjunctiva normal, no discharge. [] Neck: Normal range of motion, no tenderness, supple, no stridor. [] Cardiovascular:Heart rate regular rhythm, no murmur [] Lungs & Thorax: Bilateral breath sounds clear to auscultation [] Abdomen: Mild epigastric tenderness to palp no rebound or guarding negative Medina's[] Skin: Warm, dry, no erythema, no rash. [] Back: No tenderness, no CVA tenderness. [] Extremities: No tenderness, no cyanosis, no clubbing, ROM intact, no edema. [] Neurologic: Alert and oriented X 3, normal motor function, normal sensory function, no focal deficits noted. [] Psychologic: Extremely anxious. [] Current Patient Data Vital Signs Vital Signs Date Time Temp Pulse Resp B/P (MAP) Pulse Ox O2 Delivery O2 Flow Rate FiO2 10/17/18 09:58 98.9 104 20 165/91 (115) 98 Room Air 98.9 Lab Values Laboratory Tests Test 10/17/18 07:01 White Blood Count 10.7 x10^3/uL (4.0-11.0) Red Blood Count 5.13 x10^6/uL (3.50-5.40) Hemoglobin 16.0 g/dL (12.0-15.5) H Hematocrit 46.2 % (36.0-47.0) Mean Corpuscular Volume 90 fL (79-100) Mean Corpuscular Hemoglobin 31 pg (25-35) Mean Corpuscular Hemoglobin Concent 35 g/dL (31-37) Red Cell Distribution Width 13.7 % (11.5-14.5) Platelet Count 251 x10^3/uL (140-400) Neutrophils (%) (Auto) 49 % (31-73) Lymphocytes (%) (Auto) 35 % (24-48) Monocytes (%) (Auto) 5 % (0-9) Eosinophils (%) (Auto) 11 % (0-3) H Basophils (%) (Auto) 1 % (0-3) Neutrophils # (Auto) 5.2 x10^3/uL (1.8-7.7) Lymphocytes # (Auto) 3.7 x10^3/uL (1.0-4.8) Monocytes # (Auto) 0.5 x10^3/uL (0.0-1.1) Eosinophils # (Auto) 1.2 x10^3/uL (0.0-0.7) H Basophils # (Auto) 0.1 x10^3/uL (0.0-0.2) Platelet Estimate Pending Sodium Level 144 mmol/L (136-145) Potassium Level 3.1 mmol/L (3.5-5.1) L Chloride Level 105 mmol/L (98-107) Carbon Dioxide Level 28 mmol/L (21-32) Anion Gap 11 (6-14) Blood Urea Nitrogen 4 mg/dL (7-20) L Creatinine 0.5 mg/dL (0.6-1.0) L Estimated GFR (Cockcroft-Gault) 131.7 BUN/Creatinine Ratio 8 (6-20) Glucose Level 110 mg/dL (70-99) H Calcium Level 8.7 mg/dL (8.5-10.1) Total Bilirubin 0.2 mg/dL (0.2-1.0) Aspartate Amino Transferase (AST) 12 U/L (15-37) L Alanine Aminotransferase (ALT) 18 U/L (14-59) Alkaline Phosphatase 110 U/L (46-116) Troponin I Quantitative < 0.017 ng/mL (0.000-0.055) Total Protein 6.7 g/dL (6.4-8.2) Albumin 3.5 g/dL (3.4-5.0) Albumin/Globulin Ratio 1.1 (1.0-1.7) Lipase 75 U/L (73-393) Laboratory Tests 10/17/18 07:01 Laboratory Tests 10/17/18 07:01 EKG EKG [] Interpretation Time: EKG: EKG: Sinus tachycardia rate of [address]-T changes Radiology/Procedures Radiology/Procedures [] Impressions: REASON: chest pain PROCEDURE: CHEST AP ONLY EXAM: Chest, single view. HISTORY: Chest pain. COMPARISON: None. FINDINGS: A frontal view of the chest is obtained. There is no infiltrate, pleural effusion or pneumothorax. The heart is normal in size. IMPRESSION: No acute pulmonary finding. Course & Med Decision Making Course & Med Decision Making Pertinent Labs and Imaging studies reviewed. (See chart for details) [] Dragon Disclaimer Dragon Disclaimer This electronic medical record was generated, in whole or in part, using a voice recognition dictation system. Departure Departure Impression: Primary Impression: Gastritis Additional Impression: Anxiety about health Disposition: HOME, SELF-CARE Condition: STABLE Referrals: Miguel A WEATHERS MD (PCP) Patient Instructions: Anxiety and Panic Attacks, Diet for Gastroesophageal Reflux Disease, Adult, Gastroesophageal Reflux Disease, Adult Additional Instructions: Follow with Dr. Weathers this week for recheck. Return emergency department with any new or concerning symptoms Scripts Ranitidine Hcl (ZANTAC) 300 Mg Tablet 1 TAB PO QHS for reflux, #90 TAB 3 Refills Prov: LEONARD RESENDIZ DO 10/17/18 Problem Qualifiers Primary Impression: Gastritis Gastritis type: unspecified gastritis Chronicity: unspecified Gastritis bleeding: without bleeding Qualified Codes: K29.70 - Gastritis, unspecified, without bleeding LEONARD RESENDIZ DO Oct 17, 2018 11:18
[2018-10-17 11:25] LABS: BACTERIA,URINE FEW /HPF (0-FEW); RBC,URINE RARE /HPF (0-2); SQUAMOUS EPITHELIAL CELL,UR OCC /LPF; WBC,URINE RARE /HPF (0-4)
[2018-10-17 11:45] LABS: % BANDS 1 % (0-9); % BASOS 1 % (0-3); % EOS 13 % (0-5); % LYMPHS 32 % (24-48); % MONOS 7 % (0-10); % SEGS 46 % (35-66); PLT ESTIMATE ADEQUATE (ADEQUATE)
== END 2018-10-17 11:20 | disposition home or self-care (01) ==
LOC: ER 09:53
DX: K29.70 Gastritis, unspecified, without bleeding (principal); F41.9 Anxiety disorder, unspecified; R07.89 Other chest pain; R00.0 Tachycardia, unspecified; E11.9 Type 2 diabetes mellitus without complications; E11.43 Type 2 diabetes mellitus with diabetic autonomic (poly)neuropathy; K31.84 Gastroparesis; Z90.49 Acquired absence of other specified parts of digestive tract; Z90.710 Acquired absence of both cervix and uterus; Z98.51 Tubal ligation status; Z88.0 Allergy status to penicillin; Z88.1 Allergy status to other antibiotic agents; Z88.5 Allergy status to narcotic agent; Z88.2 Allergy status to sulfonamides; Z88.6 Allergy status to analgesic agent; Z88.8 Allergy status to other drugs, medicaments and biological substances
CPT/HCPCS: 36415; 71045; 80053; 81001; 83690; 84484; 85007; 85025; 93005; 99285-25

== ENCOUNTER → 2019-01-17 | Outpatient (CLI) | payer OTHER ==
[~2019-01-17] MED LIST changes: +RANI300T3 PO
--- NOTE | 2019-01-17 11:04 | RAD ---
DATE: 01/17/2019. EXAM: DIGITAL DIAGNOSTIC BILATERAL, BREAST BILATERAL. HISTORY: Bilateral nipple discharge. Palpable focus superolaterally on the left. Bilateral breast tenderness. COMPARISON: 07/06/2018. This study was interpreted with the benefit of Computerized Aided Detection (CAD). FINDINGS: Breast Density: DENSE The breast parenchyma is dense, which could reduce the sensitivity of mammography. Breast parenchyma level density D. There is no subareolar correlate for nipple discharge bilaterally. There is dense parenchyma superolaterally on the left, but no clear mammographic correlate for a palpable focus. And asymmetry on the right MLO view as no clear correlates on other projections. A postbiopsy clip is noted superomedially on the right. Scattered and coarse calcifications are benign. There are no clearly suspicious findings. On today's sonography, a hypoechoic focus of the right 10:00 position 8 cm from the nipple measures 10 x 6 mm. This is likely a comminuted cyst. It is adjacent to other septated or adjacent cysts which measure up to 12 x 6 mm in combination. There is no clear suspicious mass. On the left, the previously noted septated cyst at the 1:00 position measures approximately 8 x 6 mm a by 6 mm there are there is no suspicious interval change. At the palpable tender focus superolaterally, only dense parenchyma is seen. In the subareolar regions, there are no dilated ducts or intraductal mass. BI-RADS CATEGORY: 3 PROBABLY BENIGN FINDING(S)-SHORT INTERVAL FOLLOW-UP SUGGESTED. RECOMMENDED FOLLOW-UP: 6M 6 MONTH FOLLOW-UP. 1. Recommend endocrinologic follow-up of bilateral breast tenderness and discharge. 2. Imaging findings were discussed with the patient. She prefers mammographic and sonographic six-month follow-up of these findings. PQRS compliance statement: Patient information was entered into a reminder system with a target due date 07/18/2019 for the next mammogram. Mammography is a sensitive method for finding small breast cancers, but it does not detect them all and is not a substitute for careful clinical examination. A negative mammogram does not negate a clinically suspicious finding and should not result in delay in biopsying a clinically suspicious abnormality. "Our facility is accredited by the [employer] Mammography Program."
== END | disposition home or self-care (01) ==
LOC: MAMMO 08:14
PROVIDERS: ATTEND Family Medicine
DX: N60.02 Solitary cyst of left breast (principal); N64.52 Nipple discharge; R92.0 Mammographic microcalcification found on diagnostic imaging of breast
CPT/HCPCS: 76641; 77066

== ENCOUNTER → 2019-08-31 | Outpatient (CLI) | payer OTHER ==
[~2019-08-31] MED LIST changes: +CONTRAST GIVEN. MC PRN; +IOHEXOL 240 MG/ML 50ML VIAL. PO ONE; +IOHEXOL 300 MG/ML 100ML VIAL. IV ONE
[2019-08-31 09:37] LABS: CREATININE 0.6 mg/dL (0.6-1.0); GFR 106.3
--- NOTE | 2019-08-31 10:34 | RAD ---
Axial CT of the abdomen and pelvis were obtained after the administration of 75 cc Isovue 370. Oral contrast was also administered. Coronal and sagittal reformats are also available. Exposure: One or more of the following individualized dose reduction techniques were utilized for this examination: 1. Automated exposure control 2. Adjustment of the mA and/or kV according to patient size 3. Use of iterative reconstruction technique Indication: Generalized abdominal pain. Comparison: None. Findings: The lung bases are clear. The heart is not enlarged. Patient status post cholecystectomy. The liver, spleen, adrenals, kidneys and pancreas are unremarkable in appearance. The stomach, small and large bowel are nondistended. There is very mild inflammation thickening of the rectosigmoid region. No free air-fluid. The appendix is visualized and is unremarkable in appearance. Radiologically significant retroperitoneal or mesenteric lymphadenopathy. Abdominal aorta is nonaneurysmal. There is moderate calcific atherosclerotic disease which causes mild to moderate stenosis which does not appear to be greater than 50 percent. Bony structures are unremarkable in appearance. Patient status post hysterectomy. IMPRESSION: 1. Mild to moderate thickening of the rectosigmoid region which may be secondary to nondistention versus actual pathologic wall thickening. Correlate with colonoscopy are recommended sigmoidoscopy. Etiology such as infection or inflammatory bowel disease are possible. Electronically signed by: Uri Epps MD (08/31/2019 10:31 AM) [id number]
--- NOTE | 2019-08-31 14:15 | RAD ---
DATE: 08/31/2019 10:09 AM EXAM: MAMMO REGINALD CITLALI CARLSONAT, BREAST BILATERAL HISTORY: Six-month follow-up bilateral breast pain with nipple discharge. At today's visit, patient denies having any nipple discharge in several months. No palpable areas of concern either. COMPARISON: 07/06/2018 bilateral mammogram and limited left breast ultrasound of that same date, also bilateral breast ultrasound of 01/17/2019. Technique: Targeted ultrasound of both breasts was performed in the areas of previously evaluated and assessed probably benign nodularity. This included specifically the right 10:00 position 8 cm from the nipple and the left 10:00 position 3 cm from the nipple. FINDINGS: Ultrasound right breast showed a ridge of dense fibroglandular tissue at the 10:00 position 8 cm from and a few sonographically benign cysts largest measuring 2 mm. No suspicious sonographic findings. Ultrasound left breast showed a 5 mm cyst at the left 10:00 position 3 cm from the nipple with no suspicious features .. IMPRESSION: No sonographic evidence of malignancy. BI-RADS CATEGORY: 2 BENIGN FINDING(S) RECOMMENDED FOLLOW-UP: 12M 12 MONTH FOLLOW-UP Annual screening mammography is recommended, unless clinically indicated sooner based on symptoms or change in physical exam. PQRS compliance statement: Patient information was entered into a reminder system with a target due date 08/31/2020 for the next mammogram. Mammography is a sensitive method for finding small breast cancers, but it does not detect them all and is not a substitute for careful clinical examination. A negative mammogram does not negate a clinically suspicious finding and should not result in delay in biopsying a clinically suspicious abnormality. "Our facility is accredited by the [employer] Mammography [employer]."
== END | disposition home or self-care (01) ==
LOC: CT 08:47
PROVIDERS: ATTEND Family Medicine
DX: R10.84 Generalized abdominal pain (principal); N63.22 Unspecified lump in the left breast, upper inner quadrant; N63.11 Unspecified lump in the right breast, upper outer quadrant; Z90.710 Acquired absence of both cervix and uterus
CPT/HCPCS: 36415; 74177; 76641; 77066; 82565; 84520; G0279; Q9966; Q9967; 77062

== ENCOUNTER → 2020-04-22 | Outpatient (CLI) | payer OTHER ==
[~2020-04-22] MED LIST changes: -CONTRAST GIVEN. MC PRN; +DOCU-109 PO; -IOHEXOL 240 MG/ML 50ML VIAL. PO ONE; -IOHEXOL 300 MG/ML 100ML VIAL. IV ONE; -LISI-338 PO; +LISI-517 PO; +SOY1TABL2 PO
== END ==
LOC: LAB 08:43
PROVIDERS: ATTEND Internal Medicine Gastroenterology
DX: Z01.812 Encounter for preprocedural laboratory examination (principal); R93.5 Abnormal findings on diagnostic imaging of other abdominal regions, including retroperitoneum; Z20.822 Contact with and (suspected) exposure to COVID-19
CPT/HCPCS: U0003

== ENCOUNTER → 2020-04-24 | Day surgery (SDC) | payer OTHER ==
[~2020-04-24] MED LIST changes: +HYDROmorphone 2 MG/ML VIAL IVP PRN; +IV RINGERS,LACTATED 1000ML 1,000 ML IV SCH; +LIDOCAINE 2% PF 5 ML VIAL. ONE; +MORPHINE SULFATE 2 MG/ML VIAL. IVP PRN; +PROCHLORPERAZINE 10 MG/2 ML VIAL. IVP PRN; +PROPOFOL 10 MG/ML (20ML) VIAL. IV ONE; +fentaNYL PF VIAL 100 MCG/2 ML VIAL IVP PRN
--- NOTE | 2020-04-24 07:44 | CONS ---
DATE OF CONSULTATION: 04/24/2020 REFERRING PHYSICIAN: . HISTORY OF PRESENT ILLNESS: A 49-year-old female with past medical history significant for gastroparesis, diabetes and hyperlipidemia, seen with an abnormal CAT scan with thickened rectosigmoid colon. Interval colonoscopy is recommended. ____ help move her bowels. Weight and appetite are stable. There has been no bleeding. She is otherwise without additional complaints. PAST MEDICAL HISTORY: Diabetes and gastroparesis. ALLERGIES: PENICILLIN, SULFA, AND METFORMIN. MEDICATIONS: Amitriptyline, docusate, hydrocodone, insulin, Tradjenta, lisinopril and oxycodone. FAMILY AND SOCIAL HISTORY: Significant for diabetes, heart disease, breast cancer and colon cancer in maternal grandmother. PAST SURGICAL HISTORY: Cholecystectomy, tonsillectomy and hysterectomy. REVIEW OF SYSTEMS: Per records. PHYSICAL EXAMINATION: GENERAL: Reveals a well-nourished, well-developed female who is alert, cooperative, in no acute distress. VITAL SIGNS: Temperature is 97.7, pulse 95 and respiratory rate 20. LUNGS: Clear. CARDIOVASCULAR: Reveals an S1, S2 without S3, S4 or appreciable murmur. ABDOMEN: With a soft abdomen, normoactive bowel sounds without appreciable hepatosplenomegaly. EXTREMITIES: Reveals no cyanosis, clubbing or edema. IMPRESSION AND PLAN: Constipation with abnormal CT scan with thickened rectosigmoid colon. Differential includes diverticular disease, inflammatory bowel disease, colon cancer ____ from imaging artefact and sterocolic ulcer with constipation. Therefore, recommend colonoscopy. Risks and benefits have been previously discussed. The patient is willing to proceed at this time. LAKHWINDER HUTCHISON MD DR: PENG/june JOB#: [id number] / [id number]
[2020-04-24 08:05] VITALS: BP 144/72
== END | disposition home or self-care (01) ==
LOC: SURG 06:06
PROVIDERS: ATTEND Internal Medicine Gastroenterology
DX: K59.00 Constipation, unspecified (principal); R93.3 Abnormal findings on diagnostic imaging of other parts of digestive tract; K64.1 Second degree hemorrhoids; K63.89 Other specified diseases of intestine; E11.9 Type 2 diabetes mellitus without complications; K21.9 Gastro-esophageal reflux disease without esophagitis; E78.00 Pure hypercholesterolemia, unspecified; I10 Essential (primary) hypertension; J45.909 Unspecified asthma, uncomplicated; M19.90 Unspecified osteoarthritis, unspecified site; E03.9 Hypothyroidism, unspecified; F41.9 Anxiety disorder, unspecified; F32.9 Major depressive disorder, single episode, unspecified; Z90.49 Acquired absence of other specified parts of digestive tract; Z90.710 Acquired absence of both cervix and uterus; Z98.890 Other specified postprocedural states; Z79.899 Other long term (current) drug therapy; Z79.82 Long term (current) use of aspirin; Z79.84 Long term (current) use of oral hypoglycemic drugs; Z88.0 Allergy status to penicillin; Z88.1 Allergy status to other antibiotic agents; Z88.2 Allergy status to sulfonamides; Z88.6 Allergy status to analgesic agent; Z88.8 Allergy status to other drugs, medicaments and biological substances; Z82.49 Family history of ischemic heart disease and other diseases of the circulatory system; Z80.0 Family history of malignant neoplasm of digestive organs; Z83.3 Family history of diabetes mellitus; Z80.3 Family history of malignant neoplasm of breast
CPT/HCPCS: 45378; J2704

== ENCOUNTER 2020-04-25 19:50 | Observation (INO) | payer OTHER ==
[~2020-04-25] VITALS: Ht 152.4 cm; Wt 64.2 kg
[~2020-04-25 19:50] MED LIST changes: -HYDROmorphone 2 MG/ML VIAL IVP PRN; -IV RINGERS,LACTATED 1000ML 1,000 ML IV SCH; -LIDOCAINE 2% PF 5 ML VIAL. ONE; -MORPHINE SULFATE 2 MG/ML VIAL. IVP PRN; -PROCHLORPERAZINE 10 MG/2 ML VIAL. IVP PRN; -PROPOFOL 10 MG/ML (20ML) VIAL. IV ONE; -fentaNYL PF VIAL 100 MCG/2 ML VIAL IVP PRN
[2020-04-25] MEDS ORDERED: HYDROmorphone 2 MG/ML VIAL IVP ONE (20:15)
--- NOTE | 2020-04-25 20:49 | PHYS DOC ---
Past Medical History Past Medical History: Bipolar, Diabetes-Type II, Pancreatitis, Other Additional Past Medical Histor: ADHD, GASTROPARESIS Past Surgical History: Cholecystectomy, Hysterectomy, Tonsillectomy, Tubal ligation Additional Past Surgical Histo: breast bx; L shoulder Smoking Status: Current Every Day Smoker Alcohol Use: None Drug Use: None Adult General Chief Complaint Chief Complaint: CHEST PAIN HPI HPI Patient is a 49 year old with a past medical history of diabetes and bipolar disorder now presenting to the emergency department complaining of chest pain. Patient states that she underwent a colonoscopy yesterday and since that time has been having intermittent sensation of left anterior chest pain with radiation to the left arm. Also complains of left lower quadrant abdominal pain which has been worsening in severity since that time. Denies any associated nausea, vomiting, fever, chills, cough, dizziness, diarrhea or bloody stools. Denies any history of similar symptoms. No known recent sick contacts Review of Systems Review of Systems Constitutional: Denies fever or chills [] Eyes: Denies change in visual acuity, redness, or eye pain [] HENT: Denies nasal congestion or sore throat [] Respiratory: Denies cough or shortness of breath [] Cardiovascular: No additional information not addressed in HPI [] GI: Denies abdominal pain, nausea, vomiting, bloody stools or diarrhea [] : Denies dysuria or hematuria [] Musculoskeletal: Denies back pain or joint pain [] Integument: Denies rash or skin lesions [] Neurologic: Denies headache, focal weakness or sensory changes [] Endocrine: Denies polyuria or polydipsia [] All other systems were reviewed and found to be within normal limits, except as documented in this note. Current Medications Current Medications Current Medications Medications (Trade) Dose Ordered Sig/Neha Start Time Stop Time Status Last Admin Dose Admin Hydromorphone HCl (Dilaudid) 0.5 mg 1X ONCE 04/25/20 20:15 04/25/20 20:16 DC Info (CONTRAST GIVEN -- Rx MONITORING) 1 each PRN DAILY PRN 04/25/20 21:30 04/27/20 21:29 Iohexol (Omnipaque 300 Mg/ml) 75 ml 1X ONCE 04/25/20 21:30 04/25/20 21:31 DC 04/25/20 21:39 75 ML Allergies Allergies Allergies Coded Allergies Type Severity Reaction Last Updated Verified Penicillins Allergy Intermediate 04/24/20 No amoxicillin Allergy Intermediate 04/24/20 No cephalexin Allergy Intermediate 04/24/20 No diclofenac Allergy Intermediate nausea 04/24/20 Yes morphine Allergy Intermediate 04/24/20 No tramadol Adverse Reaction Severe 04/24/20 Yes Sulfa (Sulfonamide Antibiotics) Adverse Reaction Intermediate Nausea and Vomiting 04/24/20 Yes metformin Adverse Reaction Intermediate 04/24/20 Yes Physical Exam Physical Exam Constitutional: Well developed, well nourished, no acute distress, non-toxic appearance. [] HENT: Normocephalic, atraumatic, bilateral external ears normal, oropharynx moist, no oral exudates, nose normal. [] Eyes: PERRLA, EOMI, conjunctiva normal, no discharge. [] Neck: Normal range of motion, no tenderness, supple, no stridor. [] Cardiovascular:Heart rate regular rhythm, no murmur [] Lungs & Thorax: Bilateral breath sounds clear to auscultation [] Abdomen: Bowel sounds normal, soft, significant left lower quadrant tenderness with guarding, no masses, no pulsatile masses. [] Skin: Warm, dry, no erythema, no rash. [] Back: No tenderness, no CVA tenderness. [] Extremities: No tenderness, no cyanosis, no clubbing, ROM intact, no edema. [] Neurologic: Alert and oriented X 3, normal motor function, normal sensory function, no focal deficits noted. [] Psychologic: Affect normal, judgement normal, mood normal. [] Current Patient Data Vital Signs Vital Signs Date Time Temp Pulse Resp B/P (MAP) Pulse Ox O2 Delivery O2 Flow Rate FiO2 04/25/20 22:08 75 133/74 (93) 97 Room Air 04/25/20 20:00 98.6 18 98.6 Lab Values Laboratory Tests Test 04/25/20 20:45 04/25/20 21:02 White Blood Count 9.8 x10^3/uL (4.0-11.0) Red Blood Count 4.64 x10^6/uL (3.50-5.40) Hemoglobin 14.7 g/dL (12.0-15.5) Hematocrit 42.0 % (36.0-47.0) Mean Corpuscular Volume 91 fL (79-100) Mean Corpuscular Hemoglobin 32 pg (25-35) Mean Corpuscular Hemoglobin Concent 35 g/dL (31-37) Red Cell Distribution Width 13.0 % (11.5-14.5) Platelet Count 241 x10^3/uL (140-400) Neutrophils (%) (Auto) 56 % (31-73) Lymphocytes (%) (Auto) 35 % (24-48) Monocytes (%) (Auto) 6 % (0-9) Eosinophils (%) (Auto) 3 % (0-3) Basophils (%) (Auto) 0 % (0-3) Neutrophils # (Auto) 5.5 x10^3/uL (1.8-7.7) Lymphocytes # (Auto) 3.5 x10^3/uL (1.0-4.8) Monocytes # (Auto) 0.5 x10^3/uL (0.0-1.1) Eosinophils # (Auto) 0.3 x10^3/uL (0.0-0.7) Basophils # (Auto) 0.0 x10^3/uL (0.0-0.2) Sodium Level 138 mmol/L (136-145) Potassium Level 3.6 mmol/L (3.5-5.1) Chloride Level 101 mmol/L (98-107) Carbon Dioxide Level 30 mmol/L (21-32) Anion Gap 7 (6-14) Blood Urea Nitrogen 7 mg/dL (7-20) Creatinine 0.6 mg/dL (0.6-1.0) Estimated GFR (Cockcroft-Gault) 105.8 BUN/Creatinine Ratio 12 (6-20) Glucose Level 245 mg/dL (70-99) H Lactic Acid Level 1.6 mmol/L (0.4-2.0) Calcium Level 9.0 mg/dL (8.5-10.1) Magnesium Level 2.2 mg/dL (1.8-2.4) Total Bilirubin 0.2 mg/dL (0.2-1.0) Direct Bilirubin < 0.1 mg/dL (0.0-0.2) Aspartate Amino Transferase (AST) 11 U/L (15-37) L Alanine Aminotransferase (ALT) 28 U/L (14-59) Alkaline Phosphatase 117 U/L (46-116) H Troponin I Quantitative < 0.017 ng/mL (0.000-0.055) Total Protein 6.6 g/dL (6.4-8.2) Albumin 3.4 g/dL (3.4-5.0) Albumin/Globulin Ratio 1.1 (1.0-1.7) Lipase 106 U/L (73-393) Urine Collection Type Unknown Urine Color Yellow Urine Clarity Clear Urine pH 7.5 (<5.0-8.0) Urine Specific [place] 1.015 (1.000-1.030) Urine Protein Negative mg/dL (NEG-TRACE) Urine Glucose (UA) >=1000 mg/dL (NEG) Urine Ketones (Stick) Negative mg/dL (NEG) Urine Blood Negative (NEG) Urine Nitrite Negative (NEG) Urine Bilirubin Negative (NEG) Urine Urobilinogen Dipstick 0.2 mg/dL (0.2 mg/dL) Urine Leukocyte Esterase Negative (NEG) Urine RBC 0 /HPF (0-2) Urine WBC Rare /HPF (0-4) Urine Squamous Epithelial Cells Few /LPF Urine Bacteria Few /HPF (0-FEW) Laboratory Tests 04/25/20 20:45 Laboratory Tests 04/25/20 20:45 EKG EKG [] Radiology/Procedures Radiology/Procedures CT SCAN OF THE ABDOMEN AND PELVIS WITH IV CONTRAST. History: Reason: abdominal pain s/p colonoscopy / Spl. Instructions: / History: Comparison:August 31, 2019 and 2015. Procedure: Contiguous axial images of the abdomen and pelvis were performed after the administration of 75 cc of Isovue 370 IV contrast. Oral contrast: No. Findings: Liver: There is a 1.4 similar hypoattenuating lesion in the right lobe of the liver anteriorly this is unchanged from previous studies and is stable. Spleen: Unremarkable Pancreas: Unremarkable Adrenal Glands: Unremarkable Kidneys: Unremarkable There is no mass or lymphadenopathy. There is no free air. There is no free fluid. The urinary bladder appears normal. The appendix is normal. The gallbladder has been removed. Impression: No acute findings. PQRS Compliance Statement: One or more of the following individualized dose reduction techniques were utilized for this examination: 1. Automated exposure control 2. Adjustment of the mA and/or kV according to patient size 3. Use of iterative reconstruction technique Electronically signed by: Tong Singh III, MD (04/25/2020 9:48 PM) [facility][] XR CHEST 1V Clinical History: Reason: chest pain / Spl. Instructions: / History: Technique: AP view of the chest was obtained at 04/25/2020 10:33 PM. Comparison: October 17, 2018. Findings: The cardiomediastinal silhouette is normal. The pulmonary vasculature is normal. The lungs and pleural margins are clear. Impression: No evidence of an acute cardiopulmonary process. Electronically signed by: Tong Singh III, MD (04/25/2020 10:37 PM) [facility] Course & Med Decision Making Course & Med Decision Making Pertinent Labs and Imaging studies reviewed. (See chart for details) Five 1-year-old female presenting the emergency department with new onset of left-sided chest pain after colonoscopy as well as left lower quadrant tenderness. Chest pain respiratory distress concern for an acute coronary syndrome on the patient does not have significant risk factors at this time. Her left upper quadrant tenderness is more concerning for acute perforation. Will obtain basic labs but anticipate the need for CT scan of the abdomen and pelvis to make sure there is no significant injury or leak following colonoscopy. 00:03 -initial work-up with blood work negative for any acute abnormality. CT scan also negative. At this time given the patient's history and comorbidities we will plan admit the patient rule out ACS or chest pain. Dragon Disclaimer Dragon Disclaimer This electronic medical record was generated, in whole or in part, using a voice recognition dictation system. Departure Departure Impression: Primary Impression: Chest pain Disposition: ADMITTED INPT THIS HOSP Condition: GOOD Referrals: Miguel A WEATHERS MD (PCP) RIZWANA BENJAMIN MD Apr 25, 2020 20:48
[2020-04-25 21:02] LABS: BASO % 0 % (0-3); EOS # 0.3 x10^3/uL (0.0-0.7); EOS % 3 % (0-3); HEMOGLOBIN 14.7 g/dL (12.0-15.5); LYMPH # 3.5 x10^3/uL (1.0-4.8); LYMPH % 35 % (24-48); MEAN CORPUSCULAR HEMOGLOBIN 32 pg (25-35); MEAN CORPUSCULAR HGB CONC 35 g/dL (31-37); MEAN CORPUSCULAR VOLUME 91 fL (79-100); MONO # 0.5 x10^3/uL (0.0-1.1); MONO % 6 % (0-9); NEUT # 5.5 x10^3/uL (1.8-7.7); NEUT % 56 % (31-73); PLATELET COUNT 241 x10^3/uL (140-400); RED BLOOD COUNT 4.64 x10^6/uL (3.50-5.40); WHITE BLOOD COUNT 9.8 x10^3/uL (4.0-11.0)
[2020-04-25 21:11] LABS: BILIRUBIN,URINE NEGATIVE (NEG); CLARITY,URINE CLEAR; COLOR,URINE YELLOW; NITRITE,URINE NEGATIVE (NEG); PH,URINE 7.5 (<5.0-8.0); PROTEIN,URINE NEGATIVE (NEG-TRACE); UROBILINOGEN,URINE 0.2 mg/dL (0.2 mg/dL)
[2020-04-25 21:12] LABS: ANION GAP 7 (6-14); BLOOD UREA NITROGEN 7 mg/dL (7-20); BUN/CREATININE RATIO 12 (6-20); CARBON DIOXIDE 30 mmol/L (21-32); CHLORIDE 101 mmol/L (98-107); CREATININE 0.6 mg/dL (0.6-1.0); GFR 105.8; GLUCOSE 245 mg/dL (70-99); POTASSIUM 3.6 mmol/L (3.5-5.1); SODIUM 138 mmol/L (136-145)
[2020-04-25 21:18] LABS: ALBUMIN 3.4 g/dL (3.4-5.0); ALBUMIN/GLOBULIN RATIO 1.1 (1.0-1.7); ALK PHOS 117 U/L (46-116); ALT (SGPT) 28 U/L (14-59); AST (SGOT) 11 U/L (15-37); DIRECT BILIRUBIN < 0.1 mg/dL (0.0-0.2); LIPASE 106 U/L (73-393); MAGNESIUM 2.2 mg/dL (1.8-2.4); TOTAL BILIRUBIN 0.2 mg/dL (0.2-1.0); TOTAL PROTEIN 6.6 g/dL (6.4-8.2)
[2020-04-25 21:22] LABS: BACTERIA,URINE FEW /HPF (0-FEW); RBC,URINE 0 /HPF (0-2); WBC,URINE RARE /HPF (0-4)
[2020-04-25] MEDS ORDERED: CONTRAST GIVEN. MC PRN (21:30)
[2020-04-25] MEDS ORDERED: IOHEXOL 300 MG/ML 100ML VIAL. IV ONE (21:30)
--- NOTE | 2020-04-25 21:51 | RAD ---
CT SCAN OF THE ABDOMEN AND PELVIS WITH IV CONTRAST. History: Reason: abdominal pain s/p colonoscopy / Spl. Instructions: / History: Comparison:August 31, 2019 and 2015. Procedure: Contiguous axial images of the abdomen and pelvis were performed after the administration of 75 cc o f Isovue 370 IV contrast. Oral contrast: No. Findings: Liver: There is a 1.4 similar hypoattenuating lesion in the right lobe of the liver anteriorly this i s unchanged from previous studies and is stable. Spleen: Unremarkable Pancreas: Unremarkable Adrenal Glands: Unremarkable Kidneys: Unremarkable There is no mass or lymphadenopathy. There is no free air. There is no free fluid. The urinary bladder appears normal. The appendix is normal. The gallbladder has been removed. Impression: No acute findings. PQRS Compliance Statement: One or more of the following individualized dose reduction techniques were utilized for this examinat ion: 1. Automated exposure control 2. Adjustment of the mA and/or kV according to patient size 3. Use of iterative reconstruction technique Electronically signed by: Tong Singh III, MD (04/25/2020 9:48 PM) [facility]
--- NOTE | 2020-04-25 22:40 | RAD ---
XR CHEST 1V Clinical History: Reason: chest pain / Spl. Instructions: / History: Technique: AP view of the chest was obtained at 04/25/2020 10:33 PM. Comparison: October 17, 2018. Findings: The cardiomediastinal silhouette is normal. The pulmonary vasculature is normal. The lungs and pleura l margins are clear. Impression: No evidence of an acute cardiopulmonary process. Electronically signed by: Tong Singh III, MD (04/25/2020 10:37 PM) [facility]
--- NOTE | 2020-04-26 00:33 | EKG ---
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
[2020-04-26 01:00] VITALS: BP 152/76
--- NOTE | 2020-04-26 02:46 | NUR ---
Admit to [facility] room 263 from ED via [facility]. A/O x 4 on arrival to floor. Stood from [facility] and ambulated to bed in room with steady gait. Orientated to room and call light. Reviewed POC to include tele monitor and lab draws such as cardiac enzymes. Verbalized understanding. Resting in bed with call light at hand.
[2020-04-26 03:00] VITALS: BP 138/63
[2020-04-26 07:55] VITALS: BP 136/66
[2020-04-26 10:19] VITALS: BP 142/99
--- NOTE | 2020-04-26 10:47 | PDOC1 ---
History and Physical Date of Admission Date of Admission DATE: 04/26/20 TIME: 10:45 Past Medical History Past Medical History Past Medical History Past Medical History Past Medical History: Bipolar, Diabetes-Type II, Pancreatitis, Other Additional Past Medical Histor: ADHD, GASTROPARESIS Past Surgical History: Cholecystectomy, Hysterectomy, Tonsillectomy, Tubal ligation Additional Past Surgical Histo: breast bx; L shoulder Smoking Status: Current Every Day Smoker Alcohol Use: None Drug Use: None fhx copd Cardiovascular: HTN Endocrine: Diabetes Past Surgical History Past Surgical History: Cholecystectomy, Tonsillectomy, Hysterectomy, Other Family History Family History: Diabetes, Hypertension Social History ALCOHOL: none Drugs: None Current Problem List Problem List Problems Medical Problems: (1) Chest pain Status: Acute Current Medications Current Medications Current Medications Hydromorphone HCl (Dilaudid) 0.5 mg 1X ONCE IVP ; Start 04/25/20 at 20:15; Stop 04/25/20 at 20:16; Status DC Iohexol (Omnipaque 300 Mg/ml) 75 ml 1X ONCE IV Last administered on 04/25/20at 21:39; Start 04/25/20 at 21:30; Stop 04/25/20 at 21:31; Status DC Info (CONTRAST GIVEN -- Rx MONITORING) 1 each PRN DAILY PRN MC SEE COMMENTS; Start 04/25/20 at 21:30; Stop 04/27/20 at 21:29 Active Scripts Active Reported Colace (Docusate Sodium) 100 Mg Capsule 100 Mg PO DAILY [employer] Caplet (Soy Isofl/Blk Coh/Gr Tea/Yerba) 1 Each Tablet 1 Each PO DAILY Percocet 5-325 Mg Tablet (Oxycodone/Acetaminophen) 1 Each Tablet 1-2 Tab PO Q4-6HRS LAST DOSE GIVEN: Tradjenta (Linagliptin) 5 Mg Tablet 5 Mg PO DAILY08 Tresiba Flextouch U-100 (Insulin Degludec) 100 Unit/1 Ml Insuln.pen 30 Unit SQ HS Amitriptyline Hcl 10 Mg Tablet 12.5 Mg PO HS Hydrocodone-Apap 7.5-325 (Hydrocodone Bit/Acetaminophen) 1 Each Tablet 1 Tab PO PRN Q6HRS PRN Lisinopril 5 Mg Tablet 10 Mg PO DAILY Novolog Flexpen (Insulin Aspart) 100 Unit/1 Ml Insuln.pen 1 Unit SQ p Allergies Allergies: Coded Allergies: Penicillins (Unverified Allergy, Intermediate, 04/24/20) amoxicillin (Unverified Allergy, Intermediate, 04/24/20) cephalexin (Unverified Allergy, Intermediate, 04/24/20) diclofenac (Verified Allergy, Intermediate, nausea, 04/24/20) morphine (Unverified Allergy, Intermediate, 04/24/20) tramadol (Verified Adverse Reaction, Severe, 04/24/20) PANCREATITIS Sulfa (Sulfonamide Antibiotics) (Verified Adverse Reaction, Intermediate, Nausea and Vomiting, 04/24/20) metformin (Verified Adverse Reaction, Intermediate, 04/24/20) lactic acid build up Vitals Vitals Vital Signs Date Time Temp Pulse Resp B/P (MAP) Pulse Ox O2 Delivery O2 Flow Rate FiO2 04/26/20 10:19 98.0 83 18 142/99 (113) 98 Room Air 98.0 Labs Labs Laboratory Tests Test 04/25/20 20:45 04/25/20 21:02 04/26/20 01:22 04/26/20 04:10 White Blood Count 9.8 x10^3/uL (4.0-11.0) Red Blood Count 4.64 x10^6/uL (3.50-5.40) Hemoglobin 14.7 g/dL (12.0-15.5) Hematocrit 42.0 % (36.0-47.0) Mean Corpuscular Volume 91 fL (79-100) Mean Corpuscular Hemoglobin 32 pg (25-35) Mean Corpuscular Hemoglobin Concent 35 g/dL (31-37) Red Cell Distribution Width 13.0 % (11.5-14.5) Platelet Count 241 x10^3/uL (140-400) Neutrophils (%) (Auto) 56 % (31-73) Lymphocytes (%) (Auto) 35 % (24-48) Monocytes (%) (Auto) 6 % (0-9) Eosinophils (%) (Auto) 3 % (0-3) Basophils (%) (Auto) 0 % (0-3) Neutrophils # (Auto) 5.5 x10^3/uL (1.8-7.7) Lymphocytes # (Auto) 3.5 x10^3/uL (1.0-4.8) Monocytes # (Auto) 0.5 x10^3/uL (0.0-1.1) Eosinophils # (Auto) 0.3 x10^3/uL (0.0-0.7) Basophils # (Auto) 0.0 x10^3/uL (0.0-0.2) Sodium Level 138 mmol/L (136-145) Potassium Level 3.6 mmol/L (3.5-5.1) Chloride Level 101 mmol/L (98-107) Carbon Dioxide Level 30 mmol/L (21-32) Anion Gap 7 (6-14) Blood Urea Nitrogen 7 mg/dL (7-20) Creatinine 0.6 mg/dL (0.6-1.0) Estimated GFR (Cockcroft-Gault) 105.8 BUN/Creatinine Ratio 12 (6-20) Glucose Level 245 mg/dL (70-99) Lactic Acid Level 1.6 mmol/L (0.4-2.0) Calcium Level 9.0 mg/dL (8.5-10.1) Magnesium Level 2.2 mg/dL (1.8-2.4) Total Bilirubin 0.2 mg/dL (0.2-1.0) Direct Bilirubin < 0.1 mg/dL (0.0-0.2) Aspartate Amino Transf (AST/SGOT) 11 U/L (15-37) Alanine Aminotransferase (ALT/SGPT) 28 U/L (14-59) Alkaline Phosphatase 117 U/L (46-116) Troponin I Quantitative < 0.017 ng/mL (0.000-0.055) < 0.017 ng/mL (0.000-0.055) < 0.017 ng/mL (0.000-0.055) Total Protein 6.6 g/dL (6.4-8.2) Albumin 3.4 g/dL (3.4-5.0) Albumin/Globulin Ratio 1.1 (1.0-1.7) Lipase 106 U/L (73-393) Urine Collection Type Unknown Urine Color Yellow Urine Clarity Clear Urine pH 7.5 (<5.0-8.0) Urine Specific [place] 1.015 (1.000-1.030) Urine Protein Negative mg/dL (NEG-TRACE) Urine Glucose (UA) >=1000 mg/dL (NEG) Urine Ketones (Stick) Negative mg/dL (NEG) Urine Blood Negative (NEG) Urine Nitrite Negative (NEG) Urine Bilirubin Negative (NEG) Urine Urobilinogen Dipstick 0.2 mg/dL (0.2 mg/dL) Urine Leukocyte Esterase Negative (NEG) Urine RBC 0 /HPF (0-2) Urine WBC Rare /HPF (0-4) Urine Squamous Epithelial Cells Few /LPF Urine Bacteria Few /HPF (0-FEW) Laboratory Tests Test 04/25/20 20:45 04/25/20 21:02 04/26/20 01:22 04/26/20 04:10 White Blood Count 9.8 x10^3/uL (4.0-11.0) Red Blood Count 4.64 x10^6/uL (3.50-5.40) Hemoglobin 14.7 g/dL (12.0-15.5) Hematocrit 42.0 % (36.0-47.0) Mean Corpuscular Volume 91 fL (79-100) Mean Corpuscular Hemoglobin 32 pg (25-35) Mean Corpuscular Hemoglobin Concent 35 g/dL (31-37) Red Cell Distribution Width 13.0 % (11.5-14.5) Platelet Count 241 x10^3/uL (140-400) Neutrophils (%) (Auto) 56 % (31-73) Lymphocytes (%) (Auto) 35 % (24-48) Monocytes (%) (Auto) 6 % (0-9) Eosinophils (%) (Auto) 3 % (0-3) Basophils (%) (Auto) 0 % (0-3) Neutrophils # (Auto) 5.5 x10^3/uL (1.8-7.7) Lymphocytes # (Auto) 3.5 x10^3/uL (1.0-4.8) Monocytes # (Auto) 0.5 x10^3/uL (0.0-1.1) Eosinophils # (Auto) 0.3 x10^3/uL (0.0-0.7) Basophils # (Auto) 0.0 x10^3/uL (0.0-0.2) Sodium Level 138 mmol/L (136-145) Potassium Level 3.6 mmol/L (3.5-5.1) Chloride Level 101 mmol/L (98-107) Carbon Dioxide Level 30 mmol/L (21-32) Anion Gap 7 (6-14) Blood Urea Nitrogen 7 mg/dL (7-20) Creatinine 0.6 mg/dL (0.6-1.0) Estimated GFR (Cockcroft-Gault) 105.8 BUN/Creatinine Ratio 12 (6-20) Glucose Level 245 mg/dL (70-99) Lactic Acid Level 1.6 mmol/L (0.4-2.0) Calcium Level 9.0 mg/dL (8.5-10.1) Magnesium Level 2.2 mg/dL (1.8-2.4) Total Bilirubin 0.2 mg/dL (0.2-1.0) Direct Bilirubin < 0.1 mg/dL (0.0-0.2) Aspartate Amino Transf (AST/SGOT) 11 U/L (15-37) Alanine Aminotransferase (ALT/SGPT) 28 U/L (14-59) Alkaline Phosphatase 117 U/L (46-116) Troponin I Quantitative < 0.017 ng/mL (0.000-0.055) < 0.017 ng/mL (0.000-0.055) < 0.017 ng/mL (0.000-0.055) Total Protein 6.6 g/dL (6.4-8.2) Albumin 3.4 g/dL (3.4-5.0) Albumin/Globulin Ratio 1.1 (1.0-1.7) Lipase 106 U/L (73-393) Urine Collection Type Unknown Urine Color Yellow Urine Clarity Clear Urine pH 7.5 (<5.0-8.0) Urine Specific [place] 1.015 (1.000-1.030) Urine Protein Negative mg/dL (NEG-TRACE) Urine Glucose (UA) >=1000 mg/dL (NEG) Urine Ketones (Stick) Negative mg/dL (NEG) Urine Blood Negative (NEG) Urine Nitrite Negative (NEG) Urine Bilirubin Negative (NEG) Urine Urobilinogen Dipstick 0.2 mg/dL (0.2 mg/dL) Urine Leukocyte Esterase Negative (NEG) Urine RBC 0 /HPF (0-2) Urine WBC Rare /HPF (0-4) Urine Squamous Epithelial Cells Few /LPF Urine Bacteria Few /HPF (0-FEW) Images Images PATIENT: HUBER BOWLING MACCOUNT: [id number] : 1970 LOCATION: ER AGE: 49 SEX: F EXAM STATUS: REG ER ORD. PHYSICIAN: RIZWANA BENJAMIN MD REASON: chest pain PROCEDURE: CHEST AP ONLY XR CHEST 1V Clinical History: Reason: chest pain / Spl. Instructions: / History: Technique: AP view of the chest was obtained at 04/25/2020 10:33 PM. Comparison: October 17, 2018. Findings: The cardiomediastinal silhouette is normal. The pulmonary vasculature is normal. The lungs and pleural margins are clear. Impression: No evidence of an acute cardiopulmonary process. Electronically signed by: Sam Doan III, MD (04/25/2020 10:37 PM) [facility] DICTATED and SIGNED BY: SAM DOAN III, MD PATIENT: HUBER BOWLING MACCOUNT: [id number] : 1970 LOCATION: ER AGE: 49 SEX: F EXAM STATUS: REG ER ORD. PHYSICIAN: RIZWANA BENJAMIN MD REASON: abdominal pain s/p colonoscopy PROCEDURE: CT ABD PELV W/ IV CONTRST ONLY CT SCAN OF THE ABDOMEN AND PELVIS WITH IV CONTRAST. History: Reason: abdominal pain s/p colonoscopy / Spl. Instructions: / H istory: Comparison:August 31, 2019 and 2015. Procedure: Contiguous axial images of the abdomen and pelvis were performed after the administration of 75 cc of Isovue 370 IV contrast. Oral contrast: No. Findings: Liver: There is a 1.4 similar hypoattenuating lesion in the right lobe of the liver anteriorly this is unchanged from previous studies and is stable. Spleen: Unremarkable Pancreas: Unremarkable Adrenal Glands: Unremarkable Kidneys: Unremarkable There is no mass or lymphadenopathy. There is no free air. There is no free fluid. The urinary bladder appears normal. The appendix is normal. The gallbladder has been removed. Impression: No acute findings. PQRS Compliance Statement: One or more of the following individualized dose reduction techniques were utilized for this examination: 1. Automated exposure control 2. Adjustment of the mA and/or kV according to patient size 3. Use of iterative reconstruction technique Electronically signed by: Sam Doan III, MD (04/25/2020 9:48 PM) [facility] VTE Prophylaxis Ordered VTE Prophylaxis Devices: No VTE Pharmacological Prophylaxi: Yes Justifications for Admission Other Justification SHAYNA ROPER MD Apr 26, 2020 10:47
--- NOTE | 2020-04-26 11:22 | NUR ---
SW following. Discussed with RN, pt from home, room air. Now complaining of abdominal pain - GI consulted. RN advised no SW needs at this time. Anticipates pt will discharge home with self care today if cleared by GI. SW will continue to follow.
--- NOTE | 2020-04-26 13:05 | PDOC2 ---
GI CONSULT Date of Service: DATE: 04/26/20 TIME: 12:47 Reason For Consult: severe abdominal pain post outpatient colonoscopy HPI: HPI: 49 y/o female admitted through ER. Reports concern for elevated blood pressure (says systolic was above 200), tightness and burning down left arm, "brain fog," and BLQ pain. Had outpt colonoscopy w/ Dr. Bains on 04/24/20 at [facility] which showed internal hemorrhoids - no specimens collected. BLQ pain began later that evening when she was done resting after her procedure and got up and moved around. It's still worse w/ movement. Passing gas. No stool since colonoscopy prep. H/o nausea, early satiety, and occasional heartburn. Takes OTC antacids PRN. Occasional constipation improved w/ stool softeners. No bleeding or weight loss. Says also had EGD and colonoscopy w/ Dr. Bains in 2017 and was diagnosed w/ gastroparesis. Does not recall previous GES. S/p cholecystectomy. Pancreatitis in 2016 - MRI unrevealing. Past imaging noted liver lesion - possible hemangioma. No PUD history. No NSAIDs. A1c 8.9 in 2018. PMH: PMH: HTN, HLD, DM, bipolar cholecystectomy, tonsillectomy, partial hysterectomy, tubal ligation, breast biopsy, shoulder surgery FH: Family History: No pertinent hx Social History: Smoke: 1 pack per day ALCOHOL: none Drugs: None ROS: GEN: +sweats (chronic, says menopause) HEENT: Denies blurred vision, sore throat CV: Denies chest pain RESP: Denies shortness of air, cough GI: Per HPI : Denies hematuria, dysuria ENDO: Denies weight changes NEURO: brain fog MSK: left arm burning SKIN: Denies jaundice, pruritus Vitals: Vitals: Vital Signs Date Time Temp Pulse Resp B/P (MAP) Pulse Ox O2 Delivery O2 Flow Rate FiO2 04/26/20 10:19 98.0 83 18 142/99 (113) 98 Room Air 98.0 Labs: Labs: Laboratory Tests Test 04/25/20 20:45 04/25/20 21:02 04/26/20 01:22 04/26/20 04:10 White Blood Count 9.8 x10^3/uL (4.0-11.0) Red Blood Count 4.64 x10^6/uL (3.50-5.40) Hemoglobin 14.7 g/dL (12.0-15.5) Hematocrit 42.0 % (36.0-47.0) Mean Corpuscular Volume 91 fL (79-100) Mean Corpuscular Hemoglobin 32 pg (25-35) Mean Corpuscular Hemoglobin Concent 35 g/dL (31-37) Red Cell Distribution Width 13.0 % (11.5-14.5) Platelet Count 241 x10^3/uL (140-400) Neutrophils (%) (Auto) 56 % (31-73) Lymphocytes (%) (Auto) 35 % (24-48) Monocytes (%) (Auto) 6 % (0-9) Eosinophils (%) (Auto) 3 % (0-3) Basophils (%) (Auto) 0 % (0-3) Neutrophils # (Auto) 5.5 x10^3/uL (1.8-7.7) Lymphocytes # (Auto) 3.5 x10^3/uL (1.0-4.8) Monocytes # (Auto) 0.5 x10^3/uL (0.0-1.1) Eosinophils # (Auto) 0.3 x10^3/uL (0.0-0.7) Basophils # (Auto) 0.0 x10^3/uL (0.0-0.2) Sodium Level 138 mmol/L (136-145) Potassium Level 3.6 mmol/L (3.5-5.1) Chloride Level 101 mmol/L (98-107) Carbon Dioxide Level 30 mmol/L (21-32) Anion Gap 7 (6-14) Blood Urea Nitrogen 7 mg/dL (7-20) Creatinine 0.6 mg/dL (0.6-1.0) Estimated GFR (Cockcroft-Gault) 105.8 BUN/Creatinine Ratio 12 (6-20) Glucose Level 245 mg/dL (70-99) Lactic Acid Level 1.6 mmol/L (0.4-2.0) Calcium Level 9.0 mg/dL (8.5-10.1) Magnesium Level 2.2 mg/dL (1.8-2.4) Total Bilirubin 0.2 mg/dL (0.2-1.0) Direct Bilirubin < 0.1 mg/dL (0.0-0.2) Aspartate Amino Transf (AST/SGOT) 11 U/L (15-37) Alanine Aminotransferase (ALT/SGPT) 28 U/L (14-59) Alkaline Phosphatase 117 U/L (46-116) Troponin I Quantitative < 0.017 ng/mL (0.000-0.055) < 0.017 ng/mL (0.000-0.055) < 0.017 ng/mL (0.000-0.055) Total Protein 6.6 g/dL (6.4-8.2) Albumin 3.4 g/dL (3.4-5.0) Albumin/Globulin Ratio 1.1 (1.0-1.7) Lipase 106 U/L (73-393) Urine Collection Type Unknown Urine Color Yellow Urine Clarity Clear Urine pH 7.5 (<5.0-8.0) Urine Specific [place] 1.015 (1.000-1.030) Urine Protein Negative mg/dL (NEG-TRACE) Urine Glucose (UA) >=1000 mg/dL (NEG) Urine Ketones (Stick) Negative mg/dL (NEG) Urine Blood Negative (NEG) Urine Nitrite Negative (NEG) Urine Bilirubin Negative (NEG) Urine Urobilinogen Dipstick 0.2 mg/dL (0.2 mg/dL) Urine Leukocyte Esterase Negative (NEG) Urine RBC 0 /HPF (0-2) Urine WBC Rare /HPF (0-4) Urine Squamous Epithelial Cells Few /LPF Urine Bacteria Few /HPF (0-FEW) Allergies: Coded Allergies: Penicillins (Unverified Allergy, Intermediate, 04/24/20) amoxicillin (Unverified Allergy, Intermediate, 04/24/20) cephalexin (Unverified Allergy, Intermediate, 04/24/20) diclofenac (Verified Allergy, Intermediate, nausea, 04/24/20) morphine (Unverified Allergy, Intermediate, 04/24/20) tramadol (Verified Adverse Reaction, Severe, 04/24/20) PANCREATITIS Sulfa (Sulfonamide Antibiotics) (Verified Adverse Reaction, Intermediate, Nausea and Vomiting, 04/24/20) metformin (Verified Adverse Reaction, Intermediate, 04/24/20) lactic acid build up Medications: Current Medications Medications (Trade) Dose Ordered Sig/Neha Route PRN Reason Start Time Stop Time Status Last Admin Dose Admin Iohexol (Omnipaque 300 Mg/ml) 75 ml 1X ONCE IV 04/25/20 21:30 04/25/20 21:31 DC 04/25/20 21:39 Imaging: Imaging: CT A/P Impression: No acute findings. CXR Impression: No evidence of an acute cardiopulmonary process. PE: GEN: NAD HEENT: Atraumatic, PERRL LUNGS: CTAB HEART: RRR ABD: quiet BS, soft, does have tenderness to light palpation in LLQ and RLQ EXTREMITY: No edema SKIN: No rashes, no jaundice NEURO/PSYCH: A & O 3 A/P: A/P: BLQ pain H/o GERD, gastroparesis - reports chronic nausea and early satiety CRC screen - as above H/o constipation - controlled w/ stool softeners S/p cholecystectomy H/o pancreatitis and possible hepatic hemangioma -- Unrevealing labs and CT. Try clears, ADAT. Discussed w/ Dr. Bains - if tolerates diet, okay to DC and follow-up as outpt. Consider trial of daily acid-trademark attorney. Could consider repeating outpt EGD +/- GES for chronic nausea and early satiety w/ ?h/o gastroparesis. Defer her concerns re: HTN and left arm burning to Dr. Crisostomo. ARTHUR AQUINO Apr 26, 2020 13:04
[2020-04-26] MEDS ORDERED: 0.9 % SODIUM CHLORIDE 10 ML DISP.SYRIN. IV PRN (14:00)
[2020-04-26] MEDS ORDERED: SODIUM PHOSPHATES 19/7GM 133 ML ENEMA. PR PRN (14:00)
[2020-04-26] MEDS ORDERED: diphenhydrAMINE 50 MG/ML VIAL IVP PRN (14:00)
[2020-04-26] MEDS ORDERED: ACETAMINOPHEN 325 MG TABLET. PO PRN (14:00)
[2020-04-26] MEDS ORDERED: ZOLPIDEM 5 MG TABLET. PO PRN (14:00)
[2020-04-26] MEDS ORDERED: ONDANSETRON PF 4 MG/2 ML VIAL. IV PRN (14:00)
[2020-04-26] MEDS ORDERED: DOCUSATE SODIUM 100 MG CAPSULE. PO PRN (14:00)
[2020-04-26] MEDS ORDERED: MAG HYDROX/ALUMINUM HYD/SIMETH 30 ML ORAL.SUSP PO PRN (14:00)
[2020-04-26] MEDS ORDERED: LORazepam 0.5 MG TABLET PO PRN (14:00)
[2020-04-26] MEDS ORDERED: guaiFENesin ORAL 200 MG/10 ML LIQUID. PO PRN (14:00)
[2020-04-26] MEDS ORDERED: cloNIDine HCL 0.1 MG TABLET PO PRN (14:00)
[2020-04-26] MEDS ORDERED: ALBUTEROL SULFATE 2.5 MG/3 ML NEBU. NEB PRN (14:00)
[2020-04-26 14:03] VITALS: BP 132/88
[2020-04-26] MEDS ORDERED: DEXTROSE 50% 25 GM / 50ML DISP.SYRIN. IV PRN (14:15)
[2020-04-26] MEDS ORDERED: HYDROcodone/APAP 7.5/325MG 1 TAB TABLET PO PRN (14:15)
[2020-04-26] MEDS ORDERED: LISINOPRIL 10 MG TABLET PO SCH (15:00)
--- NOTE | 2020-04-26 15:12 | HP ---
ADMIT DATE: 04/25/2020 short stay summary CHIEF COMPLAINT: Left-sided chest pain and epigastric pain. HISTORY OF PRESENT ILLNESS: This is a pleasant 49-year-old female with a history of diabetes and tobacco use. She presented to the emergency room with complaints of chest pain. The patient underwent a colonoscopy on the and reported that she had some left anterior chest discomfort with radiation to left arm. She complains of left lower quadrant pain. Denies nausea, vomiting, chills, bloody stools. She reports that the colonoscopy was fine and she was asked to repeat her colonoscopy in 10 years. PAST MEDICAL HISTORY: Significant for bipolar disorder, diabetes, gastroparesis, pancreatitis, previous hysterectomy, cholecystectomy, breast biopsy, left shoulder surgery, tubal ligation. SOCIAL HISTORY: Smoking history: One-half pack per day. Alcohol use: None. Drug use: None. FAMILY HISTORY: Positive for COPD. REVIEW OF SYSTEMS: Denies fever or chills. Denies visual change, eye discomfort or vision loss. Denies nasal congestion, shortness of breath or cough. Denies nausea, vomiting or bloody stools. Has had some left lower quadrant discomfort. Denies back pain or joint pain. No rash or new skin lesions. Denies focal weakness or headache. Denies polyuria, polydipsia. Denies gait disturbance. A 14-point review of systems otherwise negative. PHYSICAL EXAMINATION NECK: Supple. HEENT: Throat and pharynx clear. Lungs clear to auscultation. ABDOMEN: Soft and obese without tenderness. SKIN: Warm without rash or erythema. There is no CVA tenderness. EXTREMITIES: Without cyanosis or edema. NEUROLOGIC: She is alert and oriented, moves all extremities well. Her affect is normal. Mood is normal. Speech is within normal limits. Reasoning and judgment are normal. Muscles of mastication are symmetric. Visual whitney are full to confrontation. VITAL SIGNS: Blood pressure 133/74, pulse 75, temperature 98.6. LABORATORY DATA: White count 9.8, hemoglobin 14.7, MCV is 91, platelets 241,000. Sodium 138, potassium 3.6, chloride 101, CO2 of 30, BUN 7, creatinine 0.6, glucose 245. Lactic acid 1.6, calcium 9.0, magnesium 2.2, AST is 11, ALT is 28, alkaline phosphatase 117. Troponin less than 0.017 x 3. Total protein 6.6. UA, greater than 1000 glucose, specific gravity 1.015, negative nitrite, negative leukocyte esterase, white blood cells are rare. CT of the abdomen and pelvis shows pancreas and adrenal glands, kidneys unremarkable. There is a 1.4 cm lesion in the right lobe of the liver, which was stable when compared to recent CT. Gallbladder has been removed. Chest x-ray, no acute process. ASSESSMENT: 1. This is a 49-year-old female with history of smoking and was postmenopausal, has risk factors of age, smoking history and postmenopausal state. She is admitted to rule out myocardial infarction, which has been excluded by troponin x 3. Would recommend Cardiology consult. expedited outpt MPI next week. Patient in agreement with plan. 2. Abdominal pain with colonoscopy yesterday with negative CT. Will plan GI consult. 3. Her diabetes appears to be uncontrolled. We will ask for A1c as well, fasting lipid panel. The patient would like to go home later today if cardiology and GI are in agreement. SHAYNA ROPER MD DR: DEMETRIO/june JOB#: [id number] / [id number] TAMI
[2020-04-26 15:15] LABS: CHOLESTEROL/HDL RATIO 6.1
--- NOTE | 2020-04-26 15:44 | PDOC2 ---
DENISSE ALFORD MEDICAL CLERICAL ASSISTANT 04/26/20 1543: CARDIAC CONSULT DATE OF CONSULT Date of Consult DATE: 04/26/20 TIME: 15:35 REASON FOR CONSULT Reason for Consult: Chest pain REFERRING PHYSICIAN Referring Physician: Fullbright SOURCE Source: Chart review, Patient HISTORY OF PRESENT ILLNESS HISTORY OF PRESENT ILLNESS This is pleasant 49 yo female admitted for complains of chest pain and abdominal pain. She had a colonoscopy yesterday which there was no acute findingsper pt and CT abd was also unrevealing. She does have abdominal tenderness post bowel prep and colonoscopy. Her chest pain has been happening intermittently in the last 2 days. She has noticed that this is pressure like left chest with tightening of her left arm. This seems to occur with exertion but no SOA or nausea or vomiting but has been having heartburn like symptoms as well and has been taking tums. This occurred last night lasting longer and EMS came and her SBP was at 207. No prior CAD, arrhythmias, VTE and no falls or injury. She is covid-19 negative as she was tested recently for her colonoscopy. Her BG has been running at times in the 300-400s. She does not check her BP regularly. She smokes tobacco and is menopausal. No recreational drugs. She is wanting to go home to take care of her mother who has some dementia. She is presently CP free. Her arm and chest discomfort are not the same as when she had shoulder impingement issues and presently there are no ROM issues. Also has been complaining weakness to both of her thighs and at times almost falling. No pain. She takes crestor, lisinopril, insulin but does not take any ASA. Her last stress test was in 2016. PAST MEDICAL HISTORY Cardiovascular: HTN, Hyperlipidemia (high TG) Pulmonary: No pertinent hx CENTRAL NERVOUS SYSTEM: Periperal neuropathy GI: GERD, Other (gastroparesis) Heme/Onc: No pertinent hx Hepatobiliary: Cholelithiasis, Other Psych: Anxiety Musculoskeletal: Osteoarthritis, Other (shoulder impingement syndrome) Rheumatologic: No pertinent hx Infectious disease: No pertinent hx ENT: No pertinent hx, Other (retinopathy) Renal/: No pertinent hx Endocrine: Diabetes (2) Dermatology: No pertinent hx PAST SURGICAL HISTORY Past Surgical History: Arthroscopy (left shoulder decompression), Cholecystectomy, Tonsillectomy, Hysterectomy (partial) FAMILY HISTORY Family History: Diabetes, Heart Disease (mother with AFIB) SOCIAL HISTORY Smoke: <1 pack per day (>20 pk yr) ALCOHOL: none Drugs: None Lives: Alone CURRENT MEDICATIONS CURRENT MEDICATIONS Current Medications Medications (Trade) Dose Ordered Sig/Neha Route PRN Reason Start Time Stop Time Status Last Admin Dose Admin Iohexol (Omnipaque 300 Mg/ml) 75 ml 1X ONCE IV 04/25/20 21:30 04/25/20 21:31 DC 04/25/20 21:39 ALLERGIES ALLERGIES: Coded Allergies: Penicillins (Unverified Allergy, Intermediate, 04/24/20) amoxicillin (Unverified Allergy, Intermediate, 04/24/20) cephalexin (Unverified Allergy, Intermediate, 04/24/20) diclofenac (Verified Allergy, Intermediate, nausea, 04/24/20) morphine (Unverified Allergy, Intermediate, 04/24/20) tramadol (Verified Adverse Reaction, Severe, 04/24/20) PANCREATITIS Sulfa (Sulfonamide Antibiotics) (Verified Adverse Reaction, Intermediate, Nausea and Vomiting, 04/24/20) metformin (Verified Adverse Reaction, Intermediate, 04/24/20) lactic acid build up ROS Review of System 14 point ROS evaluated with pertinent positives noted per HPI PHYSICAL EXAM General: Alert, Oriented X3, Cooperative, No acute distress HEENT: Atraumatic, Mucous membr. moist/pink Lungs: Clear to auscultation, Normal air movement Heart: Regular rate (SR), Normal S1, Normal S2, No murmurs Abdomen: Soft, No tenderness Extremities: No cyanosis, No edema, Other (2+ pedal pulse bilaterally, no atrophic skin ) Skin: No breakdown, No significant lesion Neuro: Normal speech, Sensation intact Psych/Mental Status: Mental status NL, Mood NL MUSCULOSKELETAL: Osteoarthritic changes both hands VITALS/I&O VITALS/I&O: Vital Signs Date Time Temp Pulse Resp B/P (MAP) Pulse Ox O2 Delivery O2 Flow Rate FiO2 04/26/20 14:03 97.7 85 20 132/88 (103) 97 Room Air 97.7 I & O 04/25/20 04/25/20 04/26/20 15:00 23:00 07:00 Intake Total 300 ml Balance 300 ml LABS Lab: Laboratory Tests Test 04/25/20 20:45 04/25/20 21:02 04/26/20 01:22 04/26/20 04:10 White Blood Count 9.8 x10^3/uL (4.0-11.0) Red Blood Count 4.64 x10^6/uL (3.50-5.40) Hemoglobin 14.7 g/dL (12.0-15.5) Hematocrit 42.0 % (36.0-47.0) Mean Corpuscular Volume 91 fL (79-100) Mean Corpuscular Hemoglobin 32 pg (25-35) Mean Corpuscular Hemoglobin Concent 35 g/dL (31-37) Red Cell Distribution Width 13.0 % (11.5-14.5) Platelet Count 241 x10^3/uL (140-400) Neutrophils (%) (Auto) 56 % (31-73) Lymphocytes (%) (Auto) 35 % (24-48) Monocytes (%) (Auto) 6 % (0-9) Eosinophils (%) (Auto) 3 % (0-3) Basophils (%) (Auto) 0 % (0-3) Neutrophils # (Auto) 5.5 x10^3/uL (1.8-7.7) Lymphocytes # (Auto) 3.5 x10^3/uL (1.0-4.8) Monocytes # (Auto) 0.5 x10^3/uL (0.0-1.1) Eosinophils # (Auto) 0.3 x10^3/uL (0.0-0.7) Basophils # (Auto) 0.0 x10^3/uL (0.0-0.2) Sodium Level 138 mmol/L (136-145) Potassium Level 3.6 mmol/L (3.5-5.1) Chloride Level 101 mmol/L (98-107) Carbon Dioxide Level 30 mmol/L (21-32) Anion Gap 7 (6-14) Blood Urea Nitrogen 7 mg/dL (7-20) Creatinine 0.6 mg/dL (0.6-1.0) Estimated GFR (Cockcroft-Gault) 105.8 BUN/Creatinine Ratio 12 (6-20) Glucose Level 245 mg/dL (70-99) H Lactic Acid Level 1.6 mmol/L (0.4-2.0) Calcium Level 9.0 mg/dL (8.5-10.1) Magnesium Level 2.2 mg/dL (1.8-2.4) Total Bilirubin 0.2 mg/dL (0.2-1.0) Direct Bilirubin < 0.1 mg/dL (0.0-0.2) Aspartate Amino Transferase (AST) 11 U/L (15-37) L Alanine Aminotransferase (ALT) 28 U/L (14-59) Alkaline Phosphatase 117 U/L (46-116) H Troponin I Quantitative < 0.017 ng/mL (0.000-0.055) < 0.017 ng/mL (0.000-0.055) < 0.017 ng/mL (0.000-0.055) Total Protein 6.6 g/dL (6.4-8.2) Albumin 3.4 g/dL (3.4-5.0) Albumin/Globulin Ratio 1.1 (1.0-1.7) Lipase 106 U/L (73-393) Urine Collection Type Unknown Urine Color Yellow Urine Clarity Clear Urine pH 7.5 (<5.0-8.0) Urine Specific [place] 1.015 (1.000-1.030) Urine Protein Negative mg/dL (NEG-TRACE) Urine Glucose (UA) >=1000 mg/dL (NEG) Urine Ketones (Stick) Negative mg/dL (NEG) Urine Blood Negative (NEG) Urine Nitrite Negative (NEG) Urine Bilirubin Negative (NEG) Urine Urobilinogen Dipstick 0.2 mg/dL (0.2 mg/dL) Urine Leukocyte Esterase Negative (NEG) Urine RBC 0 /HPF (0-2) Urine WBC Rare /HPF (0-4) Urine Squamous Epithelial Cells Few /LPF Urine Bacteria Few /HPF (0-FEW) Triglycerides Level 286 mg/dL (0-150) H Cholesterol Level 233 mg/dL (0-200) H LDL Cholesterol, Calculated 138 mg/dL (0-100) H VLDL Cholesterol, Calculated 57 mg/dL (0-40) H Non-HDL Cholesterol Calculated 195 mg/dL (0-129) H HDL Cholesterol 38 mg/dL (40-60) L Cholesterol/HDL Ratio 6.1 Laboratory Tests 04/25/20 20:45 Laboratory Tests 04/25/20 20:45 ASSESSMENT/PLAN ASSESSMENT/PLAN 1. Chest pain: trops nml EKG SR without acute changes 2. HLP: not on goal 3. DM2: uncontrolled, reported at times 300-400 at home. per PCP 4. HTN urgency: now controlled 5. Tobaccoism 6. Menopause 7. Hx of shoulder impingement 8. Hx of gastroparesis and DPN 9. Possible statin myopathy 10. GERD Recommendations 1. Symptoms concerning for unstable angina. Pt wants to go home so she can take care of her mother who has dementia. Discussed ischemic workup with pt and this could be arrange next week. [facility] vs [facility], will discuss with primary forest fire prevention specialist 2. If she does go home today. Home with low dose Lisinopril, toprol XL, Imdur. ASA 3. Check CK, TSH 4. Will reduce crestor dose if CK is normal and would consider adding CoQ10. Also she would be a good candidate for repatha. 5. Start on PPI 6. Smoking cessation BEKAH KAM MD 04/26/201933: CARDIAC CONSULT ASSESSMENT/PLAN ASSESSMENT/PLAN Pt. seen and examined. Agree with above OPERATIONS SUPPORT MANAGER note. She has features suggestive of angina but also came in with HTN Due to risk factors, we discussed options for further evaluation. Currently her EKG, enzymes and lack of ongoing symptoms are reassuring. We will plan for expedited outpt [facility] next week. Patient in agreement with plan. Thanks. DENISSE ALFORD APRN Apr 26, 2020 15:43 BEKAH KAM MD Apr 26, 2020 19:34
[2020-04-26] MEDS ORDERED: INSULIN LISPRO 300 UNITS/3 ML VIAL. SQ SCH (17:00)
[2020-04-26] MEDS ORDERED: PANTOPRAZOLE 40 MG TABLET.DR. PO ONE (17:15)
--- NOTE | 2020-04-26 18:16 | NUR ---
Prescriptions called to pharmacy per Dr. Prabhakar.
--- NOTE | 2020-04-26 18:39 | NUR ---
patient discharged home with self care. Patient verbalized understanding of discharge instructions and follow up. No questions at this time.
[2020-04-26] MEDS ORDERED: AMITRIPTYLINE HCL 25 MG TABLET. PO SCH (21:00)
[2020-04-26] MEDS ORDERED: ATORVASTATIN CALCIUM 20 MG TABLET PO SCH (21:00)
[2020-04-26] MEDS ORDERED: ENOXAPARIN 40 MG/0.4 ML SYRINGE. SQ SCH (21:00)
[2020-04-27 03:09] LABS: HEMOGLOBIN A1C 10.9 % (4.8-5.6)
[2020-04-27] MEDS ORDERED: PANTOPRAZOLE 40 MG TABLET.DR. PO SCH (07:30)
[2020-04-27] MEDS ORDERED: ASPIRIN ENTERIC COATED 81 MG TABLET.DR. PO SCH (08:00)
[2020-04-27] MEDS ORDERED: METOPROLOL SUCC 24HR ER 25 MG TAB.ER.24H. PO SCH (09:00)
[2020-04-27] MEDS ORDERED: ISOSORBIDE MONONITRATE ER 30 MG TAB.ER.24H PO SCH (09:00)
[2020-04-27] MEDS ORDERED: DOCUSATE SODIUM 100 MG CAPSULE. PO SCH (09:00)
[2020-04-27] MEDS ORDERED: [UNRECOGNIZED DRUG - OTHER] PO SCH (09:00)
[2020-04-27] MEDS ORDERED: LISINOPRIL 5 MG TABLET. PO SCH (09:00)
== END 2020-04-26 18:35 | disposition home or self-care (01) ==
LOC: ER 19:50 → 2 SOUTH 23:53
PROVIDERS: ADMIT Family Medicine; ATTEND Family Medicine
DX: R07.89 Other chest pain (principal); I16.0 Hypertensive urgency; I10 Essential (primary) hypertension; E11.43 Type 2 diabetes mellitus with diabetic autonomic (poly)neuropathy; E11.65 Type 2 diabetes mellitus with hyperglycemia; E78.5 Hyperlipidemia, unspecified; K21.9 Gastro-esophageal reflux disease without esophagitis; K31.84 Gastroparesis; F31.9 Bipolar disorder, unspecified; F90.9 Attention-deficit hyperactivity disorder, unspecified type; F17.210 Nicotine dependence, cigarettes, uncomplicated; K59.00 Constipation, unspecified; K64.8 Other hemorrhoids; Z90.49 Acquired absence of other specified parts of digestive tract; Z90.711 Acquired absence of uterus with remaining cervical stump; Z90.710 Acquired absence of both cervix and uterus; Z79.4 Long term (current) use of insulin
CPT/HCPCS: 36415; 71045; 74177; 80053; 80061; 80076; 81001; 82550; 83036; 83605; 83690; 83735; 84443; 84484; 85025; 93005; 96372; 99285; G0378; Q9967; G0379; J1815

== ENCOUNTER → 2020-05-07 | Outpatient (CLI) | payer OTHER ==
[2020-04-26 14:03] VITALS: BP 132/88
[~2020-05-07] MED LIST changes: +REGADENOSON 0.4 MG/5 ML DISP.SYRIN. IV ONE
--- NOTE | 2020-05-07 15:50 | RAD ---
MR#: [id number] Date of Study: 05/07/2020 Ordering Physician: BEKAH PRABHAKAR, Referring Physician: HOLLIE GOODE Tech: JOSHUA Jaeger, ARRT (R) (N) APPROVED REPORT Test Type: Pharmacological Stress Nurse/Tech: EULOGIO MOLINA Test Indications: CHEST PAIN X 1 WEEK Cardiac History: HTN, SEE EMR Medications: SEE EMR Medical History: SEE EMR Resting ECG: SR BORDERLINE PROLONGED QT INTERVAL Resting Heart Rate: 79 bpm Resting Blood Pressure: 106/59mmHg Pretest Chest Pain: No chest pain Nurse/Tech Notes S1S2, LUNGS CTA, VSS, DENIED SOA, OR CHEST PAIN. PT ANXIOUS ABOUT THE EXAM AND HAVING TO WALK ON THE TREADMILL, DUE TO "LEG HEAVINESS". Consent: The procedure was explained to the patient in lay terms. Informed consent was witnessed. Karlo eout was entered into [employer]. History and Stress Test performed by RT Ramón (Bayron) (N) Pharm. Details Pharmacologic stress testing was performed using 0.4mg per 5ml of regadenoson given intravenously ove r 7-10 seconds. Stress Symptoms PT ATTEMPTED TO WALK ON THE TREADMILL, BUT QUIT AFTER 1:49 BECAUSE HER RIGHT LEG WAS "HEAVY AND FELT NUMB". PROCEEDED WITH CHEMICAL STRESS TEST. PT C/O SLIGHT SOA, SOME CHEST HEAVINESS AND NAUSEA. SYMPT OMS RESOLVED AFTER A COUPLE OF MINUTES. POST EXERCISE Reason for Termination: Infusion complete Max HR: 133 bpm Max Blood Pressure: 136/61mmHg Blood Pressure response to exercise: Normal blood pressure response during stress. Heart Rate response to exercise: WNL Chest Pain: . SLIGHT PRESSURE INTERPRETATION Stress EKG Conclusion: No evidence of stress induced EKG changes. Imaging Protocol IMAGE PROTOCOL: Rest Tc-99m/stress Tc-99m 1 day Rest: Stress: Viability: Radiopharm.Tc99m EyzlxlfhwHg12o Sestamibi [id number] 31mCi Img Date 05/07/2020 05/07/2020 Inj-Img [id number]. 75min. Rest Admin Site:IV - Right HandAdministrator:RT Ramón (R)(N) Stress Admin Site: IV - Right HandAdministrator: RT Ramón (R)(N) STRESS DATA End Diast. Vol.53.0mlAv. Heart Rate96.0bpm End Syst. Vol.6.0mlCO Index BSA0.0L/min Myocardial Mass98.0gEject. Lxnptlpe78.0% Stress Rates Pk. Fill Rate6.16EDV/secLVtime Pk. Fill 138.24msec Pk. Empty Rate6.01ESV/secLVtime Pk. Diuzw369.26msec 03/17 Pk. Fill1.84EDV/sec Stress Scores Regional WT1.00Summed WT4.00 Regional WM0.00Summed WM0.00 The rest and stress images show normal perfusion, normal contraction and thickening. LV Perf. Quant 17 Seg. SSS0.00 17 Seg. SRS0.00 17 Seg. SDS0.00 Stress Defect Extent (% LAD)0.00Rest Defect Extent (% LAD)0.00Rev. Defect Extent (% LAD)0.00 Stress Defect Extent (% LCX) 0.00Rest Defect Extent (% LCX)0.00Rev. Defect Extent (% LCX)0.00 Stress Defect Extent (% RCA)0.00Rest Defect Extent (% RCA)0.00Rev. Defect Extent (% RCA)0.00 Stress Defect Extent (% RAVINDRA)0.00Rest Defect Extent (% RAVINDRA)0.00Rev. Defect Extent (% RAVINDRA)0.00 Other Information Quality:Good Risk Assessment: Low Risk Conclusion 1. No evidence of EKG changes with stress testing. 2. Normal perfusion at stress/rest. 3. Low risk study. 4. EF > 60%. Signed by : Bekah Prabhakar, Electronically Approved : 05/07/2020 15:50:05
== END ==
LOC: NM 09:48
PROVIDERS: ATTEND Internal Medicine Cardiovascular Disease
DX: I10 Essential (primary) hypertension (principal); R07.9 Chest pain, unspecified
CPT/HCPCS: 78452; 93017; A9500; J2785

== ENCOUNTER → 2020-05-23 | Outpatient (CLI) | payer OTHER ==
[2020-04-26 14:03] VITALS: BP 132/88
[~2020-05-23] MED LIST changes: -REGADENOSON 0.4 MG/5 ML DISP.SYRIN. IV ONE
--- NOTE | 2020-05-24 13:26 | RAD ---
MR#: [id number] Date of Study: 05/23/2020 Ordering Physician: BEKAH KAM, Referring Physician: BEKAH KAM, Tech: APPROVED REPORT Patient Location: OUT-PATIENT Indications Claudication: Risk Factors Hypertension Diabetes VELOCITY AND DOPPLER WAVEFORM ANALYSIS RIGHT cm/secWaveformSeverity LEFT cm/secWaveform Severity dCFA 143.0BiphasicdCFA 108.0Triphasic Prof Fem Art. 91.0TriphasicProf Fem Art. 91.0Monophasic Fem Art Prox. 103.0BiphasicFem Art Prox. 98.0Biphasic Fem Art Mid. 111.0BiphasicFem Art Mid. 120.0Biphasic Fem Art Dist. 82.0BiphasicFem Art Dist. 97.0Biphasic Pop Art(Fossa) 43.0BiphasicPop Art(AK) 49.0Biphasic STAFFING ACCOUNT MANAGER Prox. 34.0BiphasicPTA Prox. 48.0Biphasic STAFFING ACCOUNT MANAGER Dist. 41.0BiphasicPTA Dist. 43.0Biphasic Per Art Dist.38.0BiphasicPer Art Dist.26.0Biphasic NEGRO Prox. 65.0BiphasicATA Prox. 82.0Biphasic DPA 35BiphasicDPA 46Biphasic Findings Grayscale images of the bilateral lower extremity arterial vessels demonstrate mild to moderate bilat eral atherosclerotic disease. Normal triphasic and biphasic waveforms are noted. There is three-ves joseph runoff bilaterally. Critical Notification Critical Value: No <Conclusion> 1. No significant bilateral lower extremity arterial disease. Signed by : Bekah Kam, Electronically Approved : 05/24/2020 13:25:37
--- NOTE | 2020-05-24 13:26 | RAD ---
MR#: [id number] Date of Study: 05/23/2020 Ordering Physician: BEKAH KAM, Referring Physician: BEKAH KAM, Tech: APPROVED REPORT Patient Location: OUT-PATIENT Exam Type: Ankle to Brachial Index Indications Claudication: normal bilateral SHRUTHI bilaterally. Risk Factors Hypertension Diabetes Pressures/Indices RightABI LeftABI Brachial 657mtDj1.9Brachial 644xeMt7.03 Ankle(PT) 112mmHgAnkle(PT) 122mmHg Ankle(DP) 109mmHgAnkle(DP) 129mmHg Critical Notification Critical Value: No <Conclusion> 1. Normal bilateral SHRUTHI. Signed by : Bekah Kam, Electronically Approved : 05/24/2020 13:26:33
== END ==
LOC: US 14:50
PROVIDERS: ATTEND Internal Medicine Cardiovascular Disease
DX: I70.203 Unspecified atherosclerosis of native arteries of extremities, bilateral legs (principal)
CPT/HCPCS: 93922; 93925

== ENCOUNTER 2020-11-17 13:25 | Emergency (ER) | payer OTHER ==
[~2020-11-17] VITALS: Ht 152.4 cm; Wt 59.0 kg
[2020-11-17 13:30] VITALS: BP 117/56
--- NOTE | 2020-11-17 14:04 | PHYS DOC ---
Past Medical History Past Medical History: Bipolar, Diabetes-Type II, Pancreatitis, Other Additional Past Medical Histor: ADHD, GASTROPARESIS Past Surgical History: Cholecystectomy, Hysterectomy, Tonsillectomy, Tubal ligation Additional Past Surgical Histo: breast bx; L shoulder Smoking Status: Current Every Day Smoker Alcohol Use: None Drug Use: None General Adult EDM: Chief Complaint: SORE THROAT HPI: HPI: Patient is a 49 year old female who presents with got her second Covid vaccine 3 days ago and noticed that her throat has been sore since then. She states she will take Tylenol every now and then. She states then today when she went to swallow some water it is hard for her to swallow. She states that she has been swallowing just fine since that one-time incident. She states she also has GERD that is uncontrolled because she has not been taking the medicine. Patient rates her throat pain at a 6 out of 10 especially when she swallowing. Patient denies fever, chest pain, abdominal pain, nausea, vomiting, diarrhea, headache, dizziness, focal weakness, numbness or tingling. Patient states she also has diabetes is not controlled, ADHD, bipolar, gastroparesis, hysterectomy, cholecystectomy, tonsillectomy, tubal ligation, pancreatitis, smoker. Review of Systems: Review of Systems: Constitutional: Denies fever or chills. [] Eyes: Denies change in visual acuity. [] HENT: Denies nasal congestion or +sore throat.+ Hard to swallow x1 [] Respiratory: Denies cough or shortness of breath. [] Cardiovascular: Denies chest pain or edema. [] GI: Denies abdominal pain, nausea, vomiting, bloody stools or diarrhea. [] : Denies dysuria. [] Musculoskeletal: Denies back pain or joint pain. [] Integument: Denies rash. [] Neurologic: Denies headache, focal weakness or sensory changes. [] Endocrine: Denies polyuria or polydipsia. [] Lymphatic: Denies swollen glands. [] Psychiatric: Denies depression or anxiety. [] Heart Score: C/O Chest Pain: No Risk Factors: Risk Factors: DM, Current or recent (<one month) smoker, HTN, HLP, family hi story of CAD, obesity. Risk Scores: Score 0 - 3: 2.5% MACE over next 6 weeks - Discharge Home Score 4 - 6: 20.3% MACE over next 6 weeks - Admit for Clinical Observation Score 7 - 10: 72.7% MACE over next 6 weeks - Early Invasive Strategies Allergies: Allergies: Allergies Coded Allergies Type Severity Reaction Last Updated Verified Penicillins Allergy Intermediate 04/24/20 No amoxicillin Allergy Intermediate 04/24/20 No cephalexin Allergy Intermediate 04/24/20 No diclofenac Allergy Intermediate nausea 04/24/20 Yes morphine Allergy Intermediate 04/24/20 No tramadol Adverse Reaction Severe 04/24/20 Yes Sulfa (Sulfonamide Antibiotics) Adverse Reaction Intermediate Nausea and Vomiting 04/24/20 Yes metformin Adverse Reaction Intermediate 04/24/20 Yes Physical Exam: PE: Constitutional: Well developed, well nourished, no acute distress, non-toxic a ppearance. [] HENT: Normocephalic, atraumatic, bilateral external ears normal, oropharynx moist, no oral exudates, nose normal. [] Eyes: PERRLA, EOMI, conjunctiva normal, no discharge. [] Neck: Normal range of motion, no tenderness, supple, no stridor. [] Cardiovascular:Heart rate regular rhythm, no murmur [] Lungs & Thorax: Bilateral breath sounds clear to auscultation [] Abdomen: Bowel sounds normal, soft, no tenderness, no masses, no pulsatile masses. [] Skin: Warm, dry, no erythema, no rash. [] Back: No tenderness, no CVA tenderness. [] Extremities: No tenderness, no cyanosis, no clubbing, ROM intact, no edema. [] Neurologic: Alert and oriented X 3, normal motor function, normal sensory function, no focal deficits noted. [] Psychologic: Affect normal, judgement normal, mood normal. [] Normal physical exam Current Patient Data: Vital Signs: Vital Signs Date Time Temp Pulse Resp B/P (MAP) Pulse Ox O2 Delivery O2 Flow Rate FiO2 11/17/20 13:30 98.7 76 16 117/56 (103) 95 Room Air 98.7 EKG: EKG: [] Radiology/Procedures: Radiology/Procedures: [] Course & Med Decision Making: Course & Med Decision Making Pertinent Labs and Imaging studies reviewed. (See chart for details) See HPI. Alert and oriented x4. Ambulatory steady gait. Speaks full clear sentences. Vital signs within normal limits. No trismus. Uvula midline. No redness or swelling or exudates in the back of the throat. Patient states she does have some nasal congestion which she is not taking any medication for. Skin pink warm and dry. Lungs are clear all station all lobes. I offered patient a one-time dose of dexamethasone in the ED and she refused stating that her blood sugars are already out of control and she does not want to take steroids with it elevates her sugars normally. Patient states she would just like to be checked for strep throat. She is not sick. She is swallowing her saliva. No lymph nodes are felt. [] Dragon Disclaimer: Dragon Disclaimer: This electronic medical record was generated, in whole or in part, using a voice recognition dictation system. Departure Departure Impression: Primary Impression: Sore throat Disposition: 01 HOME / SELF CARE / HOMELESS Condition: STABLE Referrals: Miguel A WEATHERS MD (PCP) Patient Instructions: Sore Throat Additional Instructions: Follow-up with primary care provider if needed. Take ibuprofen or Tylenol to help with your pain. Gargle with salt water. You can also use Chloraseptic spray to help numb the back of your throat. EMANI TOM GROUT MACHINE TENDER Nov 17, 2020 14:04
== END 2020-11-17 14:30 | disposition home or self-care (01) ==
LOC: ER 13:25
DX: J02.9 Acute pharyngitis, unspecified (principal); F31.9 Bipolar disorder, unspecified; E11.9 Type 2 diabetes mellitus without complications; K21.9 Gastro-esophageal reflux disease without esophagitis; F17.200 Nicotine dependence, unspecified, uncomplicated; Z88.0 Allergy status to penicillin; Z88.1 Allergy status to other antibiotic agents; Z88.2 Allergy status to sulfonamides; Z88.5 Allergy status to narcotic agent; Z88.6 Allergy status to analgesic agent; Z88.8 Allergy status to other drugs, medicaments and biological substances
CPT/HCPCS: 87070; 87147; 87880; 99283

== ENCOUNTER → 2021-01-02 | Outpatient (CLI) | payer OTHER ==
--- NOTE | 2021-01-02 14:32 | RAD ---
PROCEDURE: MG DIGITAL BILAT DIAGNOSTIC MAMMO WITH REGINALD HISTORY: The patient is 50 years old and is seen for Reason: BILATERAL BREAST pain and DISCHARGE / Sp l. Instructions: Last covid shot 11/14/20 right arm / History: . COMPARISON: August 31, 2019 mammogram and ultrasound. TECHNIQUE: CC and MLO views of both breasts were obtained. Images were processed by the [employer] computer-aided detection system. Bilateral breast ultrasounds were also performed. DENSITY: The breast parenchyma is extremely dense, which could obscure a lesion on mammography. FINDINGS: Right mammogram: No developing mass, suspicious calcifications or architectural distortion. Prior bi opsy marker noted. Right ultrasound: 2 adjacent cysts within the right breast 10:00 position 8 cm from the nipple. No vieira spicious posterior shadowing. Dense fibrous tissue throughout the right breast. No pathologic lymphad enopathy. Left mammogram: No suspicious mass, architectural distortion or microcalcification. Benign-appearing calcifications. Left ultrasound: No solid mass or cystic lesion within the left breast to correspond with patient's d iscomfort. Dense fibrous tissue noted. No pathologic lymphadenopathy. IMPRESSION: 1. No mammographic or ultrasound evidence of suspicious abnormality to correspond with patient's hever n and nipple discharge. Recommend continued clinical follow-up and further evaluation is indicated. R ecommend annual screening mammograms. 2. Small right breast cysts. Recommend annual screening mammograms per [place] [employer] guidelines. She will be due in one year. BI-RADS category 2 Benign Patient entered into a reminder system for annual screening mammogram. Electronically signed by: Willis Callejas DO (01/02/2021 2:30 PM) [id number]
== END ==
LOC: MAMMO 13:10
PROVIDERS: ATTEND Family Medicine
DX: N60.01 Solitary cyst of right breast (principal); N64.52 Nipple discharge
CPT/HCPCS: 76641; 77066; G0279; 77062

== ENCOUNTER 2021-01-13 07:23 | Emergency (ER) | payer OTHER ==
[~2021-01-13] VITALS: Ht 152.4 cm; Wt 62.1 kg
[~2021-01-13 07:23] MED LIST changes: -LISI-517 PO; +LISI5TAB15 PO
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
[2021-01-13 08:27] VITALS: BP 140/67
== END 2021-01-13 09:10 | disposition home or self-care (01) ==
LOC: ER 07:23
DX: M54.2 Cervicalgia (principal); G89.11 Acute pain due to trauma; M54.6 Pain in thoracic spine; M54.50 Low back pain, unspecified; F31.9 Bipolar disorder, unspecified; E11.9 Type 2 diabetes mellitus without complications; F17.200 Nicotine dependence, unspecified, uncomplicated; Z90.49 Acquired absence of other specified parts of digestive tract; Z90.710 Acquired absence of both cervix and uterus; Z98.51 Tubal ligation status; V43.54XA Car driver injured in collision with van in traffic accident, initial encounter; Y93.89 Activity, other specified; Y92.488 Other paved roadways as the place of occurrence of the external cause; Y99.8 Other external cause status
CPT/HCPCS: 99282; 99283

== ENCOUNTER 2021-05-02 17:11 | Emergency (ER) | payer OTHER ==
[~2021-05-02] VITALS: Ht 152.4 cm; Wt 63.0 kg
[2021-05-02 18:23] LABS: BILIRUBIN,URINE NEGATIVE (NEG); CLARITY,URINE CLEAR; COLOR,URINE YELLOW; NITRITE,URINE NEGATIVE (NEG); PROTEIN,URINE NEGATIVE (NEG-TRACE); UROBILINOGEN,URINE 0.2 mg/dL (0.2 mg/dL)
[2021-05-02] MEDS ORDERED: KETOROLAC 15 MG/ML VIAL. IVP ONE (18:45)
[2021-05-02] MEDS ORDERED: IV NORMAL SALINE 1000ML BAG 1,000 ML IV ONE (18:45)
[2021-05-02 18:46] LABS: BASO # 0.1 x10^3/uL (0.0-0.2); BASO % 1 % (0-3); EOS # 0.2 x10^3/uL (0.0-0.7); EOS % 2 % (0-3); HEMATOCRIT 41.3 % (36.0-47.0); HEMOGLOBIN 13.8 g/dL (12.0-15.5); LYMPH # 2.8 x10^3/uL (1.0-4.8); LYMPH % 30 % (24-48); MEAN CORPUSCULAR HEMOGLOBIN 31 pg (25-35); MEAN CORPUSCULAR HGB CONC 33 g/dL (31-37); MEAN CORPUSCULAR VOLUME 93 fL (79-100); MONO # 0.5 x10^3/uL (0.0-1.1); MONO % 5 % (0-9); NEUT # 5.7 x10^3/uL (1.8-7.7); NEUT % 62 % (31-73); PLATELET COUNT 278 x10^3/uL (140-400); RED BLOOD COUNT 4.42 x10^6/uL (3.50-5.40); RED CELL DISTRIBUTION WIDTH 13.8 % (11.5-14.5); WHITE BLOOD COUNT 9.2 x10^3/uL (4.0-11.0)
[2021-05-02 19:09] LABS: BACTERIA,URINE FEW /HPF (0-FEW); RBC,URINE OCC /HPF (0-2); WBC,URINE OCC /HPF (0-4); YEAST,URINE PRESENT /HPF
[2021-05-02 19:12] LABS: CALCIUM 8.1 mg/dL (8.5-10.1); CREATININE 0.5 mg/dL (0.6-1.0); GFR 130.1
--- NOTE | 2021-05-02 19:16 | PHYS DOC ---
Past Medical History Past Medical History: Bipolar, Diabetes-Type II, Pancreatitis, Other Additional Past Medical Histor: ADHD, GASTROPARESIS, RETINOPATHY, KIDNEY STONE, "HEART MEDICATION" Past Surgical History: Cholecystectomy, Hysterectomy, Tonsillectomy, Tubal ligation Additional Past Surgical Histo: breast bx; L shoulder Smoking Status: Current Every Day Smoker Alcohol Use: None Drug Use: None General Adult EDM: Chief Complaint: BACK PAIN OR INJURY HPI: HPI: Patient is a 50 year old female who presents with dysuria and low back pain radiating to the groin. Patient reports she had one episode of burning on urination last night. She woke up today with low back pain that radiates to her groin with associated nausea. She denies any emesis, diarrhea, hematuria or other abdominal pain. Patient has history of pancreatitis and kidney stones. Review of Systems: Review of Systems: Constitutional: Denies fever, chills or generalized weakness Eyes: Denies change in visual acuity, visual field deficits or discharge HENT: Denies ear pain, nasal congestion or sore throat Respiratory: Denies cough or shortness of breath Cardiovascular: Denies chest pain, palpitations or edema GI: See HPI : See HPI Musculoskeletal: Denies back pain or joint pain Integument: Denies rash or other skin lesion Neurologic: Denies headache, focal weakness or sensory changes Heart Score: C/O Chest Pain: No Current Medications: Current Medications Medications (Trade) Dose Ordered Sig/[facility] Start Time Stop Time Status Last Admin Dose Admin Ketorolac Tromethamine (Toradol 15mg Vial) 15 mg 1X ONCE 05/02/21 18:45 05/02/21 18:46 DC Sodium Chloride 1,000 ml @ 1,000 mls/hr 1X ONCE 05/02/21 18:45 05/02/21 19:44 05/02/21 18:48 1,000 MLS/HR Allergies: Allergies: Allergies Coded Allergies Type Severity Reaction Last Updated Verified Penicillins Allergy Intermediate 04/24/20 No amoxicillin Allergy Intermediate 04/24/20 No cephalexin Allergy Intermediate 04/24/20 No diclofenac Allergy Intermediate nausea 04/24/20 Yes morphine Allergy Intermediate 04/24/20 No tramadol Adverse Reaction Severe 04/24/20 Yes Sulfa (Sulfonamide Antibiotics) Adverse Reaction Intermediate Nausea and Vomiting 04/24/20 Yes metformin Adverse Reaction Intermediate 04/24/20 Yes Physical Exam: PE: Constitutional: Well developed, well nourished, no acute distress, non-toxic appearance. HENT: Normocephalic, atraumatic, bilateral external ears normal, nose normal. Eyes: EOMI, conjunctiva normal, no discharge. Neck: Normal range of motion, no stridor. Abdomen: Bowel sounds normal, soft, no tenderness, no masses, no pulsatile masses. Skin: Warm, dry, no erythema, no rash. Back: No step-off, no tenderness, no CVA tenderness. Neurologic: Alert and oriented x4, no focal deficits noted. Current Patient Data: Labs: Laboratory Tests Test 05/02/21 17:45 05/02/21 18:20 Urine Collection Type Void Urine Color Yellow Urine Clarity Clear Urine pH 6.0 (<5.0-8.0) Urine Specific [place] <=1.005 (1.000-1.030) Urine Protein Negative mg/dL (NEG-TRACE) Urine Glucose (UA) 500 mg/dL (NEG) Urine Ketones (Stick) Negative mg/dL (NEG) Urine Blood Negative (NEG) Urine Nitrite Negative (NEG) Urine Bilirubin Negative (NEG) Urine Urobilinogen Dipstick 0.2 mg/dL (0.2 mg/dL) Urine Leukocyte Esterase Negative (NEG) Urine RBC Occ /HPF (0-2) Urine WBC Occ /HPF (0-4) Urine Squamous Epithelial Cells Mod /LPF Urine Bacteria Few /HPF (0-FEW) Urine Yeast Present /HPF White Blood Count 9.2 x10^3/uL (4.0-11.0) Red Blood Count 4.42 x10^6/uL (3.50-5.40) Hemoglobin 13.8 g/dL (12.0-15.5) Hematocrit 41.3 % (36.0-47.0) Mean Corpuscular Volume 93 fL (79-100) Mean Corpuscular Hemoglobin 31 pg (25-35) Mean Corpuscular Hemoglobin Concent 33 g/dL (31-37) Red Cell Distribution Width 13.8 % (11.5-14.5) Platelet Count 278 x10^3/uL (140-400) Neutrophils (%) (Auto) 62 % (31-73) Lymphocytes (%) (Auto) 30 % (24-48) Monocytes (%) (Auto) 5 % (0-9) Eosinophils (%) (Auto) 2 % (0-3) Basophils (%) (Auto) 1 % (0-3) Neutrophils # (Auto) 5.7 x10^3/uL (1.8-7.7) Lymphocytes # (Auto) 2.8 x10^3/uL (1.0-4.8) Monocytes # (Auto) 0.5 x10^3/uL (0.0-1.1) Eosinophils # (Auto) 0.2 x10^3/uL (0.0-0.7) Basophils # (Auto) 0.1 x10^3/uL (0.0-0.2) Laboratory Tests 05/02/21 18:20 Vital Signs: Vital Signs Date Time Temp Pulse Resp B/P (MAP) Pulse Ox O2 Delivery O2 Flow Rate FiO2 05/02/21 19:39 70 144/65 (91) 97 Room Air 05/02/21 19:04 79 138/93 (108) 98 Room Air 05/02/21 18:39 78 151/57 (88) 97 Room Air 05/02/21 18:27 84 166/70 (102) 98 Room Air 05/02/21 18:21 82 202/89 (126) 98 Room Air 05/02/21 17:45 81 16 165/91 (115) 98 Room Air Radiology/Procedures: Radiology/Procedures: PROCEDURE: CT ABDOMEN PELVIS WO CONTRAST CT ABDOMEN+PELVIS WO History: Left flank pain radiating to groin, dysuria Comparison: CT abdomen and pelvis 04/25/2020. Technique: CT of the abdomen and pelvis without contrast. Findings: The lung bases are clear. The liver, pancreas, spleen and adrenal glands are unremarkable. Cholecystectomy changes. No biliary ductal dilatation. No nephrolithiasis or hydronephrosis. No perinephric fat stranding. Normal course and caliber of the ureters without ureterolithiasis. The stomach and small bowel are unremarkable. Normal appendix. Normal colon. No peritoneal free air or free fluid. Moderate atherosclerosis of the aorta and alyson ac arteries without aneurysm. No adenopathy. Small fat-containing umbilical hernia. No acute osseous abnormality. Impression: 1. No acute findings in the abdomen and pelvis. No nephrolithiasis, hy dronephrosis or perinephric inflammatory changes. ------ Exposure: One or more of the following individualized dose reduction techniques were utilized for this examination: 1. Automated exposure control 2. Adjustment of the mA and/or kV according to patient size 3. Use of iterative reconstruction technique. Electronically signed by: Alex Franklin MD (05/02/2021 8:11 PM) [facility] Course & Med Decision Making: Course & Med Decision Making Pertinent Labs and Imaging studies reviewed. (See chart for details) Patient is a 50-year-old female with past medical history including pancreatitis and kidney stones, among others, who presents with left-sided flank pain radiating to the right groin with one episode of dysuria. Work-up today will include labs, urinalysis and CT plain of the abdomen/pelvis. CT imaging negative at this time. Urine does show yeast. Patient will be treated with fluconazole 150 mg once here in the department, and prescribed another to take 3 days from today. She may take [id number] NSAIDs for pain. Patient is instructed to follow-up with her primary care provider if her symptoms do not improve. All of her questions were answered. She understands and is agreeable to discharge plan. Dragon Disclaimer: Dragon Disclaimer: This electronic medical record was generated, in whole or in part, using a voice recognition dictation system. Departure Departure Impression: Primary Impression: Deanna infection Disposition: HOME / SELF CARE / HOMELESS Condition: STABLE Referrals: Miguel A WEATHERS MD (PCP) Patient Instructions: Urinary Tract Infection, [id number] Additional Instructions: EMERGENCY DEPARTMENT GENERAL DISCHARGE INSTRUCTIONS Thank you for coming to [facility] Emergency Department (ED) today and trusting us with you care. We trust that you had a positive experience in our Emergency Department. If you wish to speak to the department management, you may call the director at . YOUR FOLLOW UP INSTRUCTIONS ARE FOLLOWS: 1. Follow up with your primary care doctor. If you do not have a primary doctor, please ask for a resource list of physicians or clinics that may be able to assist you with follow up care. 2. The emergency provider has interpreted your imaging studies, if any were ordered. The radiology patient account specialist also reviewed them. If there is a change in the findings, you will be notified in 48 hours when at all possible. 3. If a lab test or culture has been done, your results will be reviewed and you will be notified if you need a change in treatment. 4. Follow instructions verbalized to you and refer to the printouts if needed. ADDITIONAL INSTRUCTIONS AND INFORMATION: 1. Your care today has been supervised by a physician who is specially trained in emergency care. Many problems require more than one evaluation for a complete diagnosis and treatment. We recommend that you schedule your follow up appointment as recommended to ensure complete treatment of you illness or injury. If you are unable to obtain follow up care and continue to have a problem, or if your condition worsens, we recommend that you return to the ED. 2. We are not able to safely determine your condition over the phone nor are we able to give sound medical advice over the phone. For these safety reasons, if you call for medical advice we will ask you to come to the ED for further evaluation. 3. If you have any questions regarding these discharge instructions please call the ED at . SAFETY INFORMATION: In the interest of safety, wellness, and injury prevention; we encourage you to wear your seat belt, if you smoke; quite smoking, and we encourage family to use a protective helmet for bicycling and other sporting events that present an increased risk for head injury. IF YOUR SYMPTOMS WORSEN OR NEW SYMPTOMS DEVELOP, OR YOU HAVE CONCERNS ABOUT YOUR CONDITION; OR IF YOUR CONDITION WORSENS WHILE YOU ARE WAITING FOR YOUR FOLLOW UP APPOINTMENT; EITHER CONTACT YOUR PRIMARY CARE DOCTOR, THE PHYSICIAN WHOSE NAME AND NUMBER YOU WERE GIVEN, OR RETURN TO THE ED IMMEDIATELY. Scripts Fluconazole (DIFLUCAN) 150 Mg Tablet 1 TAB PO ONCE, #1 TAB 1 Refill Prov: JUNO TELLEZ 05/02/21 JUNO TELLEZ May 02, 2021 19:16
[2021-05-02 19:18] LABS: ALBUMIN 3.4 g/dL (3.4-5.0); TOTAL BILIRUBIN 0.3 mg/dL (0.2-1.0); TOTAL PROTEIN 6.8 g/dL (6.4-8.2)
[2021-05-02 19:39] VITALS: BP 144/65
--- NOTE | 2021-05-02 20:13 | RAD ---
CT ABDOMEN+PELVIS WO History: Left flank pain radiating to groin, dysuria Comparison: CT abdomen and pelvis 04/25/2020. Technique: CT of the abdomen and pelvis without contrast. Findings: The lung bases are clear. The liver, pancreas, spleen and adrenal glands are unremarkable. Cholecyste ctomy changes. No biliary ductal dilatation. No nephrolithiasis or hydronephrosis. No perinephric fat stranding. Normal course and caliber of the ureters without ureterolithiasis. The stomach and small bowel are unremarkable. Normal appendix. Normal colon. No peritoneal free air o r free fluid. Moderate atherosclerosis of the aorta and iliac arteries without aneurysm. No adenopath y. Small fat-containing umbilical hernia. No acute osseous abnormality. Impression: 1. No acute findings in the abdomen and pelvis. No nephrolithiasis, hydronephrosis or perinephric in flammatory changes. ------ Exposure: One or more of the following individualized dose reduction techniques were utilized for thi s examination: 1. Automated exposure control 2. Adjustment of the mA and/or kV according to patient size 3. Use of iterative reconstruction technique. Electronically signed by: Alex Franklin MD (05/02/2021 8:11 PM) [facility]
[2021-05-02] MEDS ORDERED: FLUC150T PO (20:39)
[2021-05-02] MEDS ORDERED: FLUCONAZOLE 100 MG TABLET. PO ONE (20:45)
== END 2021-05-02 20:57 | disposition home or self-care (01) ==
LOC: ER 17:11
DX: B37.9 Candidiasis, unspecified (principal); E11.9 Type 2 diabetes mellitus without complications; F31.9 Bipolar disorder, unspecified; F17.200 Nicotine dependence, unspecified, uncomplicated; Z88.0 Allergy status to penicillin; Z88.1 Allergy status to other antibiotic agents; Z88.2 Allergy status to sulfonamides; Z88.6 Allergy status to analgesic agent; Z88.5 Allergy status to narcotic agent; Z88.8 Allergy status to other drugs, medicaments and biological substances
CPT/HCPCS: 36415; 74176; 80053; 81001; 83690; 85025; 96360; 99285; J7030

== ENCOUNTER 2021-07-05 17:11 | Emergency (ER) | payer OTHER ==
[~2021-07-05] VITALS: Ht 152.4 cm; Wt 66.3 kg
[~2021-07-05 17:11] MED LIST changes: +FLUC150T PO
[2021-07-05 18:09] LABS: BASO # 0.1 x10^3/uL (0.0-0.2); BASO % 1 % (0-3); EOS # 0.3 x10^3/uL (0.0-0.7); EOS % 4 % (0-3); HEMOGLOBIN 14.7 g/dL (12.0-15.5); LYMPH # 2.4 x10^3/uL (1.0-4.8); LYMPH % 31 % (24-48); MEAN CORPUSCULAR HEMOGLOBIN 32 pg (25-35); MEAN CORPUSCULAR HGB CONC 35 g/dL (31-37); MEAN CORPUSCULAR VOLUME 92 fL (79-100); MONO # 0.5 x10^3/uL (0.0-1.1); MONO % 7 % (0-9); NEUT # 4.5 x10^3/uL (1.8-7.7); NEUT % 57 % (31-73); PLATELET COUNT 252 x10^3/uL (140-400); RED BLOOD COUNT 4.57 x10^6/uL (3.50-5.40); RED CELL DISTRIBUTION WIDTH 13.5 % (11.5-14.5); WHITE BLOOD COUNT 7.9 x10^3/uL (4.0-11.0)
[2021-07-05] MEDS: diphenhydrAMINE 50 MG/ML VIAL IVP ONE (18:10)
[2021-07-05] MEDS: KETOROLAC 30 MG/ML VIAL. IVP ONE (18:11)
[2021-07-05 18:23] LABS: BACTERIA,URINE MODERATE /HPF (0-FEW); RBC,URINE 0 /HPF (0-2); YEAST,URINE PRESENT /HPF
[2021-07-05 18:26] LABS: CALCIUM 8.5 mg/dL (8.5-10.1); CREATININE 0.6 mg/dL (0.6-1.0); GFR 105.4; POTASSIUM 3.9 mmol/L (3.5-5.1)
[2021-07-05 18:32] LABS: ALBUMIN 3.4 g/dL (3.4-5.0); ALBUMIN/GLOBULIN RATIO 1.1 (1.0-1.7); TOTAL BILIRUBIN 0.2 mg/dL (0.2-1.0); TOTAL PROTEIN 6.4 g/dL (6.4-8.2)
--- NOTE | 2021-07-05 18:49 | RAD ---
Single view chest dated 07/05/2021 6:47 PM: COMPARISON: 04/25/2020 Clinical Indication: Chest tightness. Findings: Single upright portable exam of the chest was performed. Heart size and mediastinal contours are with in normal limits. Lungs are clear. No consolidation or pleural effusion. No pneumothorax. IMPRESSION: No acute radiographic abnormality. Electronically signed by: Boris Novak MD (07/05/2021 6:47 PM) [facility]
--- NOTE | 2021-07-05 19:13 | RAD ---
Bilateral lower extremity venous Doppler dated 07/05/2021 7:11 PM COMPARISON: none. CLINICAL INDICATION: Swelling and calf pain Reason: Swelling with calf pain / Spl. Instructions: / H istory: FINDINGS: Grayscale, color-flow and spectral waveform analysis performed to include the deep venous system of b ilateral lower extremity. There is normal compressibility, phasicity and augmentation of flow through out. No filling defects are seen. IMPRESSION: No evidence of bilateral lower extremity deep vein thrombosis. Electronically signed by: Boris Novak MD (07/05/2021 7:11 PM) [facility]
--- NOTE | 2021-07-05 19:45 | PHYS DOC ---
Past Medical History Past Medical History: Bipolar, Diabetes-Type II, Pancreatitis, Other Additional Past Medical Histor: ADHD, GASTROPARESIS, RETINOPATHY, KIDNEY STONE, "HEART MEDICATION" Past Surgical History: Cholecystectomy, Hysterectomy, Tonsillectomy, Tubal ligation Additional Past Surgical Histo: breast bx; L shoulder Smoking Status: Current Every Day Smoker Alcohol Use: None Drug Use: None General Adult EDM: Chief Complaint: LOWER EXTREMITY EDEMA HPI: HPI: Patient is a 50-year-old female who presents to the emergency department complaining of bilateral lower extremity swelling that she noticed yesterday after mowing her lawn. Patient denies pain to her lower extremities. Patient states she also experienced tightness in her chest after noticing her legs were swollen. Patient states that she had the same swelling all day today, has b ecome worried and wants to be checked out the emergency department. Patient denies chest pain, chest or nasal congestion. Denies increased thirst or increased urination, denies increased urinary frequency, urinary pressure, burning with urination, hematuria or other dysuria. Patient denies vaginal discharge. Patient denies syncopal or near syncopal episodes, denies dizziness, denies headaches. Patient denies shortness of breath. Patient denies other physical complaints or physical concerns. Review of Systems: Review of Systems: 14 body systems of review of systems have been reviewed. See HPI for pertinent positives and negative responses, otherwise all other systems are negative, nonpertinent or noncontributory. Constitutional: Negative except as outlined in HPI above. Skin: Negative except as outlined in HPI above. Eyes: Negative except as outlined in HPI above. HENT: Negative except as outlined in HPI above. Respiratory: Negative except as outlined in HPI above. Cardiovascular: Negative except as outlined in HPI above. GI: Negative except as outlined in HPI above. : Negative except as outlined in HPI above. Musculoskeletal: Negative except as outlined in HPI above. Integument: Negative except as outlined in HPI above. Neurologic: Negative except as outlined in HPI above. Endocrine: Negative except as outlined in HPI above. Lymphatic: Negative except as outlined in HPI above. Psychiatric: Negative except as outlined in HPI above. Heart Score: C/O Chest Pain: No Risk Factors: Risk Factors: DM, Current or recent (<one month) smoker, HTN, HLP, family history of CAD, obesity. Risk Scores: Score 0 - 3: 2.5% MACE over next 6 weeks - Discharge Home Score 4 - 6: 20.3% MACE over next 6 weeks - Admit for Clinical Observation Score 7 - 10: 72.7% MACE over next 6 weeks - Early Invasive Strategies Current Medications: Current Medications Medications (Trade) Dose Ordered Sig/Neha Start Time Stop Time Status Last Admin Dose Admin Diphenhydramine HCl (Benadryl) 25 mg 1X ONCE 07/05/21 17:45 07/05/21 17:50 DC 07/05/21 18:10 25 MG Ketorolac Tromethamine (Toradol 30mg Vial) 30 mg 1X ONCE 07/05/21 17:45 07/05/21 17:50 DC Allergies: Allergies: Allergies Coded Allergies Type Severity Reaction Last Updated Verified Penicillins Allergy Severe angioedema 07/05/21 No amoxicillin Allergy Severe angioedema 07/05/21 No diclofenac Allergy Intermediate nausea 04/24/20 Yes tramadol Adverse Reaction Severe 04/24/20 Yes Sulfa (Sulfonamide Antibiotics) Adverse Reaction Intermediate Nausea and Vo miting 04/24/20 Yes cephalexin Adverse Reaction Intermediate n/v 07/05/21 No metformin Adverse Reaction Intermediate 07/05/21 Yes morphine Adverse Reaction Intermediate n/v 07/05/21 No Physical Exam: PE: Constitutional: Well developed, well nourished, no acute distress, non-toxic appearance. 50-year-old female in no apparent distress. HENT: Normocephalic, atraumatic. Eyes: Conjunctiva normal, no discharge. Neck: Normal range of motion, no stridor. Cardiovascular: No cyanosis appreciated, distal cap refill less than 2 seconds. Heart sounds S1-S2 to auscultation, regular rate and rhythm. Lungs & Thorax: Patient is in no respiratory distress, no audible adventitious lung sounds appreciated. Lung sounds are clear to auscultation all lung whitney, no pain to palpation of the anterior thorax. Abdomen: Nontender, no abnormalities noted. Skin: Warm, dry, no erythema, no rash. Back: No tenderness, no deformities. Extremities: No tenderness, no cyanosis, no clubbing, ROM intact, no edema. Pain to palpation along popliteal skin surfaces bilateral lower extremities, pain to palpation of calves bilateral lower extremities. There is no swelling appreciated, distal cap refills less than 2 seconds bilateral lower extremities, 2+ dorsalis pedis pulses equal bilateral lower extremities. Neurologic: Alert and oriented X 3, normal motor function, normal sensory function, no focal deficits noted. Psychologic: Affect normal, judgement normal, mood normal. Current Patient Data: Labs: Laboratory Tests Test 07/05/21 17:30 07/05/21 17:35 Urine Collection Type Unknown Urine Color (Auto) Colorless Urine Turbidity Clear Urine pH (Auto) 5.5 (<5.0-8.0) Urine Specific [place] 1.008 (1.000-1.030) Urine Protein (Auto) Negative mg/dL (Negative) Urine Glucose (Auto)(UA) >=1000 mg/dL (Negative) Urine Ketones (Auto) Negative mg/dL (Negative) Urine Blood (Auto) Negative (Negative) Urine Nitrite Negative (Negative) Urine Bilirubin (Auto) Negative (Negative) Urine Urobilinogen (Auto) Normal mg/dL (Normal) Urine Leukocyte Esterase (Auto) Negative (Negative) Urine RBC 0 /HPF (0-2) Urine WBC 1-4 /HPF (0-4) Urine Squamous Epithelial Cells Many /LPF Urine Bacteria Moderate /HPF (0-FEW) Urine Yeast Present /HPF White Blood Count 7.9 x10^3/uL (4.0-11.0) Red Blood Count 4.57 x10^6/uL (3.50-5.40) Hemoglobin 14.7 g/dL (12.0-15.5) Hematocrit 42.0 % (36.0-47.0) Mean Corpuscular Volume 92 fL (79-100) Mean Corpuscular Hemoglobin 32 pg (25-35) Mean Corpuscular Hemoglobin Concent 35 g/dL (31-37) Red Cell Distribution Width 13.5 % (11.5-14.5) Platelet Count 252 x10^3/uL (140-400) Neutrophils (%) (Auto) 57 % (31-73) Lymphocytes (%) (Auto) 31 % (24-48) Monocytes (%) (Auto) 7 % (0-9) Eosinophils (%) (Auto) 4 % (0-3) H Basophils (%) (Auto) 1 % (0-3) Neutrophils # (Auto) 4.5 x10^3/uL (1.8-7.7) Lymphocytes # (Auto) 2.4 x10^3/uL (1.0-4.8) Monocytes # (Auto) 0.5 x10^3/uL (0.0-1.1) Eosinophils # (Auto) 0.3 x10^3/uL (0.0-0.7) Basophils # (Auto) 0.1 x10^3/uL (0.0-0.2) D-Dimer (Gayle) 0.42 ug/mlFEU (0.00-0.50) Sodium Level 135 mmol/L (136-145) L Potassium Level 3.9 mmol/L (3.5-5.1) Chloride Level 100 mmol/L (98-107) Carbon Dioxide Level 24 mmol/L (21-32) Anion Gap 11 (6-14) Blood Urea Nitrogen 9 mg/dL (7-20) Creatinine 0.6 mg/dL (0.6-1.0) Estimated GFR (Cockcroft-Gault) 105.4 BUN/Creatinine Ratio 15 (6-20) Glucose Level 348 mg/dL (70-99) H Calcium Level 8.5 mg/dL (8.5-10.1) Total Bilirubin 0.2 mg/dL (0.2-1.0) Aspartate Amino Transferase (AST) 14 U/L (15-37) L Alanine Aminotransferase (ALT) 30 U/L (14-59) Alkaline Phosphatase 118 U/L (46-116) H Troponin I High Sensitivity 5 ng/L (4-50) Total Protein 6.4 g/dL (6.4-8.2) Albumin 3.4 g/dL (3.4-5.0) Albumin/Globulin Ratio 1.1 (1.0-1.7) Laboratory Tests 07/05/21 17:35 Laboratory Tests 07/05/21 17:35 Vital Signs: Vital Signs Date Time Temp Pulse Resp B/P (MAP) Pulse Ox O2 Delivery O2 Flow Rate FiO2 07/05/21 17:11 98.7 79 20 142/64 (90) 96 Room Air 98.7 EKG: EKG: EKG performed at 1717 by ED nursing staff shows a normal sinus rhythm without other ectopy, heart rate 76 bpm, TN interval point 156, QTc interval 0.450, no acute STEMI, no ACS, no acute ischemia appreciated, EKG interpreted by ED attending physician Dr. Jackson. Radiology/Procedures: Radiology/Procedures: REASON: Chest tightness PROCEDURE: CHEST AP ONLY Single view chest dated 07/05/2021 6:47 PM: COMPARISON: 04/25/2020 Clinical Indication: Chest tightness. Findings: Single upright portable exam of the chest was performed. Heart size and mediastinal contours are within normal limits. Lungs are clear. No consolidation or pleural effusion. No pneumothorax. IMPRESSION: No acute radiographic abnormality. Electronically signed by: Boris Novak MD (07/05/2021 6:47 PM) [facility] REASON: Swelling with calf pain PROCEDURE: VENOUS LOWER EXT BILATERAL Bilateral lower extremity venous Doppler dated 07/05/2021 7:11 PM COMPARISON: none. CLINICAL INDICATION: Swelling and calf pain Reason: Swelling with calf pain / Spl. Instructions: / History: FINDINGS: Grayscale, color-flow and spectral waveform analysis performed to include the deep venous system of bilateral lower extremity. There is normal compressibility, phasicity and augmentation of flow throughout. No filling defects are seen. IMPRESSION: No evidence of bilateral lower extremity deep vein thrombosis. Electronically signed by: Boris Novak MD (07/05/2021 7:11 PM) [facility] Course & Med Decision Making: Course & Med Decision Making Pertinent Labs and Imaging studies reviewed. (See chart for details) 50-year-old female, vital signs reviewed, presents emerged from concerning intermittent chest tightness with lower extremity swelling. While the patient initially denied lower extremity pain, during physical examination there was pain along the both calves and popliteal regions of leg, a sonogram study was ordered which did not reveal any evidence of DVTs. Patient is EKG was unremarkable, CBC, CMP, D-dimer, high-sensitivity troponin I was unremarkable except for patient's blood sugar was elevated however patient is insulin- dependent diabetic. The patient's urine did show yeast cystitis. Discussed all findings with patient, will start on Diflucan regimen for yeast in urine. Discussed with patient strict follow-up with primary care this week for ongoing evaluation of lower extremity swelling, discussed elevating lower extremities after work. Return to ER precautions or concerns were reviewed, patient gave verbal understanding of and is amenable to ED discharge planning. Discussed with the patient all findings and diagnostic testing as well as the need to follow-up with their primary care provider for further evaluation and treatment or return to the ED if any new or worsening symptoms. Strict return precautions were also discussed at length, the patient voiced understanding and agreement with the discharge planning. The patient was nontoxic in appearance, in no apparent distress, and hemodynamically stable at the time of disposition. [place] Disclaimer: [place] Disclaimer: This electronic medical record was generated, in whole or in part, using a voice recognition dictation system. Departure Departure Impression: Primary Impression: Yeast UTI Additional Impression: Swelling of lower extremity Disposition: HOME / SELF CARE / HOMELESS Condition: GOOD Referrals: Miguel A WEATHERS MD (PCP) Additional Instructions: You were seen today in the emergency department for lower extremity swelling, and chest tightness. Your chest x-ray, EKG, and blood work did not show any concerning findings that would suggest you are having a heart attack or pulmonary disease or pneumonia. Your lab work did not show any concerning findings of anemia or electrolyte imbalance. Your blood sugar was slightly elevated however you are diabetic. Your urine did show yeast, as we discussed I am starting you on Diflucan. Please take as directed until complete. Please elevate your feet above the level of your heart daily after work to help reduce any swelling, please follow-up with your primary care provider this week for ongoing evaluation of your lower extremity swelling. Please take all other prescribed medications as directed by your primary care provider. Thank you for visiting our Emergency Department. It was a pleasure taking care of you today in the emergency department and we appreciate you trusting us with your care. If any additional problems come up don't hesitate to return to visit us. Please follow up with your primary care provider so they can plan additional care if needed and know about the problem that you had. If symptoms worsen come back to the Emergency Department. Any concerning symptoms that start such as chest pain, shortness of air, weakness or numbness on one side of the body, running high fevers or any other concerning symptoms return to the ER. Scripts Fluconazole (DIFLUCAN) 200 Mg Tablet 1 TAB PO DAILY for Yeast in urine for 14 Days, #14 TAB 0 Refills Prov: BORIS PITT APRN 07/05/21 BORIS PITT APRN Jul 05, 2021 19:45
[2021-07-05] MEDS ORDERED: FLUC200T PO (20:11)
[2021-07-05 20:23] VITALS: BP 136/64
--- NOTE | 2021-07-06 00:24 | EKG ---
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
== END 2021-07-05 20:24 | disposition home or self-care (01) ==
LOC: ER 17:11
DX: B37.49 Other urogenital candidiasis (principal); R22.43 Localized swelling, mass and lump, lower limb, bilateral; F31.9 Bipolar disorder, unspecified; E11.9 Type 2 diabetes mellitus without complications; F17.200 Nicotine dependence, unspecified, uncomplicated; Z90.49 Acquired absence of other specified parts of digestive tract; Z90.710 Acquired absence of both cervix and uterus; Z98.51 Tubal ligation status; Z88.0 Allergy status to penicillin; Z88.1 Allergy status to other antibiotic agents; Z88.2 Allergy status to sulfonamides; Z88.6 Allergy status to analgesic agent; Z88.5 Allergy status to narcotic agent
CPT/HCPCS: 36415; 71045; 80053; 81001; 84484; 85025; 85379; 87086; 93005; 93970; 96374; 99285; J1200; J1885

== ENCOUNTER → 2021-07-07 | Outpatient (CLI) | payer OTHER ==
[2021-07-05 20:23] VITALS: BP 136/64
[~2021-07-07] MED LIST changes: +FLUC200T PO
--- NOTE | 2021-07-07 16:17 | RAD ---
PROCEDURE: MG DIGITAL BILAT DIAGNOSTIC MAMMO WITH REGINALD, US BREAST BILAT HISTORY: The patient is 50 years old and is seen for Reason: bloody discharge left breast, milky disc harge rt breast bilateral breast / Spl. Instructions: / History: . COMPARISON: January 02, 2021 TECHNIQUE: CC and MLO views of both breasts were obtained. Images were processed by the [employer] computer-aided detection system. Bilateral breast ultrasound. DENSITY: The breast parenchyma is extremely dense, which could obscure a lesion on mammography. FINDINGS: Right mammogram: Scattered benign-appearing calcifications. Right breast biopsy marker noted. No new suspicious microcalcifications, mass or architectural distortion. Right ultrasound: Unchanged cyst within the right breast 9:00 position 7 cm from the nipple. Dense br east tissue. Left mammogram: Scattered benign-appearing calculations. No new suspicious microcalcification, mass o r architectural distortion. Left ultrasound: Dense breast tissue. IMPRESSION: 1. No mammographic or ultrasound evidence of abnormality to correspond with patient's pain and nippl e discharge. Recommend further clinical evaluation with abnormal lab values. Recommend follow-up if p ersistent clinical concern. Additionally recommend annual screening mammograms. Recommend annual screening mammograms per [employer] guidelines. She will be due in one year. BI-RADS category 2 Benign Patient entered into a reminder system for annual screening mammogram. Electronically signed by: Willis Callejas DO (07/07/2021 4:15 PM) [id number]
== END ==
LOC: MAMMO 14:31
PROVIDERS: ATTEND Family Medicine
DX: N60.01 Solitary cyst of right breast (principal); R92.1 Mammographic calcification found on diagnostic imaging of breast
CPT/HCPCS: 76641; 77066; G0279; 77062